=== PATIENT | female | born 1960 | race Caucasian/White ===

== ENCOUNTER 2022-08-11 09:19 | Emergency (ER) | payer BC, SELFPAY ==
[2022-08-11 09:28] VITALS: BP 125/106; PULSE 74; RESP 18; TEMP 36.2; O2SAT 95; BMI 38.6
--- NOTE | 2022-08-11 09:47 | ED.CHESTPAIN ---
HPI - Chest Pain General Chief Complaint: Chest Pain Stated Complaint: Chest/shoulder pain Time Seen by Provider: 08/11/22 09:43 History of Present Illness HPI narrative: This 62-year-old female comes in reporting some chest discomfort over the past couple days. She states that it is not exertional. She did not have any nausea, vomiting, lightheadedness, shortness of breath, or diaphoresis. 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 She was at the [facility] regarding this and had an angiogram. She is taking metoprolol. She did take a baby aspirin the last couple days. She does not report any exercise intolerance recently. Related Data Home Medications Medication Instructions Recorded Confirmed aspirin 81 mg chewable tablet 81 mg PO DAILY 08/11/22 08/11/22 lisinopril 20 mg tablet mg 08/11/22 metoprolol tartrate 25 mg tablet mg 08/11/22 omeprazole 20 mg capsule,delayed 20 mg PO DAILY 08/11/22 08/11/22 release Allergies Allergy/AdvReac Type Severity Reaction Status Date / Time No Known Drug Allergies Allergy Verified 08/11/22 09:27 Review of Systems Status of ROS Reports: 10 or more systems reviewed and unremarkable except as noted in History and below Narrative Constitutional: No fevers, no weight gain or loss. Eyes: No discharge. No vision changes. HENT: No congestion, no sore throat, no ear pain. Cardiovascular: No palpitations. Chest discomfort as described above. Respiratory: No shortness of breath, no wheezes, no cough. Gastrointestinal: No abdominal pain, no vomiting, no diarrhea. Genitourinary: No dysuria, no hematuria. Musculoskeletal: Normal range of motion. Skin: No rashes, no pruritis. Neurological: No dizziness, weakness, sensory change, speech change. Endo/Heme/Allergies: No bruising or bleeding. No polydipsia. Pysch: no suicidality, no anxiety, no insomnia. All other systems reviewed and are negative. Exam Narrative Exam Narrative: Constitutional: Well-developed, well-nourished, no acute distress. HEENT: Normocephalic, atraumatic. Neck: Normal range of motion. Nontender. Supple. Heart: Regular. No murmurs. Normal rate. Intact distal pulses. Lungs: Clear to auscultation. No reproducible chest discomfort. No wheezes, rhonchi, or rales. Abdomen: Normal bowel sounds. Nontender. No rebound tenderness. Genitalia: Deferred. Back: No midline tenderness. Normal range of motion. Extremities: Normal range of motion. No injury. No pedal edema. Skin: Intact. No rash. Warm. No erythema or pallor. Neurologic: No altered sensation. No weakness. Alert and oriented. Psychiatric: No suicidality. No anxiety or depression. No insomnia. Nursing notes and vitals signs are reviewed. Const Vital Signs, click to edit/add: Vital Signs - 24 hr 08/11/22 09:28 Temperature 97.1 F L Pulse Rate [Right Pulse Oximeter] 74 Respiratory Rate 18 Blood Pressure [Right Upper Arm] 125/106 H Pulse Oximetry 95 Oxygen Delivery Method Room Air Course Vital Signs Vital signs: Initial Vital Signs Temperature 97.1 F L 08/11/22 09:28 Temperature Source Temporal Artery Scan 08/11/22 09:28 Pulse Rate 74 08/11/22 09:28 Respiratory Rate 18 08/11/22 09:28 Blood Pressure 125/106 H 08/11/22 09:28 Blood Pressure Mean 112 08/11/22 09:28 Blood Pressure Position Sitting 08/11/22 09:28 Pulse Oximetry 95 08/11/22 09:28 Oxygen Delivery Method 08/11/22 09:28 Vital Signs Temperature 97.1 F L 08/11/22 09:28 Pulse Rate 74 08/11/22 09:28 Respiratory Rate 18 08/11/22 09:28 Blood Pressure 125/106 H 08/11/22 09:28 Pulse Oximetry 95 08/11/22 09:28 Oxygen Delivery Method 08/11/22 09:28 Temperature 97.1 F L 08/11/22 09:28 Pulse Rate 74 08/11/22 09:28 Respiratory Rate 18 08/11/22 09:28 Blood Pressure 125/106 H 08/11/22 09:28 Pulse Oximetry 95 08/11/22 09:28 Oxygen Delivery Method 08/11/22 09:28 MDM - Chest Pain MDM Narrative Medical decision making narrative: This patient comes in reporting some mild chest discomfort but is concerned because of her prior history of spontaneous coronary artery dissection that occurred about 6 years ago. She is taking metoprolol. She did receive 4 baby aspirin here. EKG shows no acute findings. An IV was established and labs returned also with normal results. In particular her troponin is in normal range. If she had a recurrent dissection this would cause a positive troponin results. This was very reassuring to the patient. She is okay to be discharged home to continue current plans. Most likely her chest discomfort is involving the chest wall. Lab Data Labs: Lab Results 08/11/22 08/11/22 08/11/22 Range/Units 09:40 09:40 09:44 WBC 4.54 (4.50-11.00) K/uL RBC 5.02 (4.00-5.20) m/uL Hgb 14.8 (12.0-16.0) gm/dL Hct 44.8 (33.0-51.0) % MCV 89 (80-100) fL MCH 30 (26-34) pg MCHC 33 (32-36) gm/dL RDW Coeff of [place] 12.7 (11.5-15.5) % Plt Count 228 (140-440) K/uL Neut % (Auto) 65.3 (42.0-72.0) % Lymph % (Auto) 25.8 (20-44) % [place] % (Auto) 7.0 (0.0-11.0) % Eos % (Auto) 1.3 (0.0-7.0) % Baso % (Auto) 0.4 (0.0-3.0) % Neut # (Auto) 2.96 (1.7-7.0) K/uL Lymph # (Auto) 1.17 (0.90-2.90) K/uL [place] # (Auto) 0.30 (0.00-0.90) K/UL Eos # (Auto) 0.06 (0.00-0.50) K/uL Baso # (Auto) 0.02 (0.00-0.30) K/uL Sodium 140 (135-149) mmol/L Potassium 4.0 (3.6-5.1) mmol/L Chloride 110 (96-114) mmol/L Carbon Dioxide 23 (20-32) mmol/L BUN 10 (7-30) mg/dL Creatinine 0.8 (0.5-1.5) mg/dL Estimated Creat Clear 64.58 Estimated GFR 84 ml/min Glucose 113 (60-115) mg/dL Calcium 9.3 (8.4-10.6) mg/dL POC Troponin I 0.03 (0.01-0.04) ng/ml ECG Data Attestation: I personally reviewed and interpreted this ECG as follows: Interpretation: Normal sinus rhythm. Rate is 83 beats per minute. There are no ST or T-wave abnormalities. Discharge Plan Discharge Clinical Impression: Atypical chest pain Patient Disposition: Home, Self-Care Condition: Stable Additional Instructions: Continue current plans. Follow up with primary MD or return if recurrent or worsening symptoms happen. Prescriptions: No Action lisinopril 20 mg tablet metoprolol tartrate 25 mg tablet aspirin 81 mg tablet,chewable 81 mg PO DAILY omeprazole 20 mg capsule,delayed release(DR/EC) 20 mg PO DAILY Follow Up/Referrals: Provider,Not a Local [Primary Care Provider] - Stand Alone Forms: [employer] Info Instructions
[2022-08-11 09:54] LABS: Troponin, Point-of-Care* 0.03 ng/ml (0.01-0.04)
[2022-08-11 09:55] LABS: Basophils Absolute Auto 0.02 K/uL (0.00-0.30); Basophils Percent Auto 0.4 % (0.0-3.0); Eosinophils Absolute Auto 0.06 K/uL (0.00-0.50); Eosinophils Percent Auto 1.3 % (0.0-7.0); Hematocrit 44.8 % (33.0-51.0); Hemoglobin* 14.8 gm/dL (12.0-16.0); Immature Granulocytes Abs Auto 0.01 K/uL (0.00-0.30); Immature Granulocytes Pct Auto 0.2 %; Lymphocytes Absolute Auto 1.17 K/uL (0.90-2.90); Lymphocytes Percent Auto 25.8 % (20-44); Mean Corpuscular HGB Conc 33 gm/dL (32-36); Mean Corpuscular Hemoglobin 30 pg (26-34); Mean Corpuscular Volume 89 fL (80-100); Neutrophils Absolute Auto 2.96 K/uL (1.7-7.0); Neutrophils Percent Auto 65.3 % (42.0-72.0); Platelet Count* 228 K/uL (140-440); RDW Coefficient of Variation % 12.7 % (11.5-15.5); Red Blood Count 5.02 m/uL (4.00-5.20); White Blood Count* 4.54 K/uL (4.50-11.00)
[2022-08-11 09:57] LABS: Slide Review Reflex No
[2022-08-11 10:13] LABS: Chloride* 110 mmol/L (96-114); Sodium* 140 mmol/L (135-149)
[2022-08-11 10:16] LABS: Blood Urea Nitrogen* 10 mg/dL (7-30); Carbon Dioxide* 23 mmol/L (20-32); Creatinine* 0.8 mg/dL (0.5-1.5); Est. Creatinine Clearance* 64.58; Estimated Glomerular Filt Rate 84 ml/min; Glucose* 113 mg/dL (60-115)
[2022-08-11 10:17] LABS: Calcium* 9.3 mg/dL (8.4-10.6)
== END 2022-08-11 11:22 | disposition home or self-care (01) ==
PROVIDERS: Emergency Provider Emergency Medicine Emergency Medical Services
DX: R07.9 Chest pain, unspecified (principal)
CPT/HCPCS: 36415; 80048; 84484; 85025; 93005; 99284

== ENCOUNTER 2024-08-20 19:31 | Emergency (ER) | payer BC, SELFPAY ==
[2024-08-20] VITALS (41 sets, daily range): BP systolic 133–167; BP diastolic 88–104; PULSE 52–75; RESP 12–29; TEMP 36.6; O2SAT 93–99; BMI 38.3
--- OUTSIDE RECORDS SUMMARY | 2024-08-20 19:33 | XMS_ITS | Encounter Summary ---
Author Organization [facility] Address [address] [place] [id number] Care Team Providers Care Cell Support Operator Name Role Phone Jayashree Martinez MD Primary Care Provider Jayashree Hadley MD Unavailable Unavailable Clinic - [facility] Unavailable Reason for Visit * Reason Comments Medication Refill Encounter Details Date Type Department Care Team (Late st Contact Info) Description 11/29/2022 [address] [place] [id number] Jayashree Martinez MD INACTIVE IN [place] 05/26/2024 Medication Refill Social History Tobacco Use Types Packs/Day Years Used Date Smoking Tobacco: Former Cigarettes Q uit: 06/27/2017 Smokeless Tobacco: Never Comments:socially Alcohol Use Standard Drinks/Week Comments Yes 0 (1 standard drink = 0.6 oz pur e alcohol) socially PHQ-2 Answer Date Recorded PHQ-2 Score 0 10/22/2022 Comments No Sex and Gender Information Value Date Recorded Sex Assigned at Not on file 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 Gender Identity Not on file Sexual Orientation Not on file documented as of this encounter Miscellaneous Notes * Telephone Encounter - Jazmine Rebolledo RN - 12/01/2022 12:50 PM CDT Provider approval needed Creatinine Date Value Ref Range Status 10/22/2022 0.99 (H) 0.51 - 0.95 mg/dL Final 05/01/2020 0.91 0.52 - 1.04 mg/dL Final documented in this encounter Plan of Treatment Not on file documented as of this encounter Visit Diagnoses Diagnosis Benign essential hypertension Essential hypertension, benign documented in this encounter Additional Health Concerns Assessment Noted Time PHQ-9 Depression Total Score: 2 03/01/20 19 11:06 AM CDT documented as of this encounter Care Teams Cell Support Operator Relationship Specialty Start Date End Date Jayashree Martinez MD PCP - General Internal Medicine 03/01/19 Jayashree Martinez MD Assigned PCP 02/08/19 07/20/23 [facility] [place] [facility] - [address] [address] Assigned PCP 07/21/23 documented as of this encounter
--- OUTSIDE RECORDS SUMMARY | 2024-08-20 19:33 | XMS_ITS | Clinical Summary ---
Author Organization [facility] Address [address] [place] [address] Care Team Providers Care Drying Machine Receiver Name Role Phone None, Pcp Primary Care Provider Unavailabl e Allergies Active Allergy Reactions Criticality Noted Date Comments Bee Venom 01/12/2006 Medications Vitamin D, Cholecalciferol, 25 MCG (1000 UT) tablet Take by mouth Active omeprazole (PriLOSEC) [address] Aden ns:Gastroesophag eal reflux disease with esophagitis without hemorrhage Take 1 capsule (20 mg total) by mouth 1 (one) time each day Do not crush or chew. 90 capsule 3 11/11/2023 11/11/19 25 Active metoprolol succinate XL (TOPROL-XL) 50 MG 24 hr tabletIndication s:Hypertension, unspecified type Take 1 tablet (50 mg total) by mouth 1 (one) time each day 90 tablet 3 11/11/2023 11/11/19 25 Active lisinopril (ZESTRIL) 20 MG tabletIndication s:Hypertension, unspecified type Take 1 tablet (20 mg total) by mouth 1 (one) time each day 90 tablet 3 11/11/2023 11/11/19 25 Active Active Problems Problem Noted Date Diagnosed Date Hypertension 11/11/2023 Assessment & Plan (11/11/2023 12:46 PM CDT): Hypertension is improving with treatment. Continue current treatment regimen. Dietary sodium restriction. Weight loss. Regular aerobic exercise. Blood pressure will be reassessed at the next regular appointment. 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 Assessment & Plan (11/11/2023 12:48 PM CDT): Last seen in 2018 for this, no issues since Encounter for breast cancer screening other than mammogram 11/11/2023 Encounter for Papanicolaou s mear for cervical cancer screening 11/11/2023 Assessment & Plan (11/11/2023 12:49 PM CDT): Pap and HPV test completed today Post-menopause 11/11/2023 Visit for annual health examination 11/11/2023 Assessment & Plan (11/11/2023 12:52 PM CDT): Dianne will think about getting the Zoster vaccine and get back to us Dianne would like to have Covid vaccines discontinued Dianne will contact me when she would like a Colonoscopy ordered Family History Medical History Relation Comments Diabetes Mother Heart disease Mother aortic valve Breast cancer Sister Relation Status Comments Brother 1 Alive Brother 2 Alive Brother 3 Alive Brother 4 Alive Brother 5 Alive Father Mother Sister Alive Social History Tobacco Use Types Packs/Day Years Used Date Smoking Tobacco: Former Cigarettes Q uit: 2018 Smokeless Tobacco: Never Tobacco Cessation:Counseling Given: Not Answered Alcohol Use Standard Drinks/Week Comments Yes 0 (1 standard drink = 0.6 oz pur e alcohol) Social Connection and Isolation Panel [NHANES] A nswer Date Recorded In a typical week, how many times do you talk on the phone with family, friends, or neighbors? Three times a week 11/10/2023 How often do you get togethe r with friends or relatives? Once a week 11/10/2023 How often do you attend [facility] or gnosticist services? Patient declined 11/10/2023 Do you belong to any clubs o r organizations such as sabianism groups, unions, fraternal or athletic groups, or school groups? Patient declined 11/10/2023 How often do you attend meet ings of the clubs or organizations you belong to? Patient declined 11/10/2023 Are you , , di vorced, , never , or living with a partner? 11/10/2023 AUDIT-C Answer Date Recorded Q1: How often do you have a drink containing alc ohol? Monthly or less 11/10/2023 Q2: How many drinks containi ng alcohol do you have on a typical day when you are drinking? Patient declined 11/10/2023 Q3: How often do you have si x or more drinks on one occasion? Patient declined 11/10/2023 Overall Financial Resource Strain (CARDIA) Answe r Date Recorded How hard is it for you to pa y for the very basics like food, housing, medical care, and heating? Patient declined 11/10/2023 PHQ-2 Answer Date Recorded PHQ-9 Total Score 0 11/10/2023 [facility] - Occupational Stress Questionnaire Answer Date Recorded Do you feel stress - tense, restless, nervous, or anxious, or unable to sleep at night because your mind is troubled all the time - these days? Only a little 11/10/2023 Exercise Vital Sign Answer Date Recorde d On average, how many days pe r week do you engage in moderate to strenuous exercise (like a brisk walk)? 2 days 11/10/2023 On average, how many minutes do you engage in exercise at this level? 20 min 11/10/2023 Hunger Vital Sign Answer Date Recorded Within the past 12 months, y ou worried that your food would run out before you got the money to buy more. Patient declined Within the past 12 months, t he food you bought just didn't last and you didn't have money to get more. Patient declined PRAPARE - Transportation Answer Date Re corded In the past 12 months, has l ack of transportation kept you from medical appointments or from getting medications? No 10/25 In the past 12 months, has l ack of transportation kept you from meetings, work, or from getting things needed for daily living? No 11/10/2023 Housing Stability Vital Sign Answer Robel e Recorded In the last 12 months, was t here a time when you were not able to pay the mortgage or rent on time? Patient declined 11/10/19 24 Number of Times Moved in the Last Year Not on fi le 11/10/2023 At any time in the [facility], were you homeless or living in a long term (including now)? No 11/10/2023 Comments Unknown Sex and Gender Information Value Date Recorded Sex Assigned at Not on file Legal Sex Female 7:52 PM CDT Gender Identity Not on file Sexual Orientation Not on file Last Filed Vital Signs Vital Sign Reading Time Taken Comments Blood Pressure 136/88 11/11/2023 10:29 AM CDT Pulse 74 11/11/2023 9:12 AM CDT Temperature 36.7 C (98.1 F) 11/11/2023 9:12 AM CDT Respiratory Rate 16 11/11/2023 9:12 AM CDT Oxygen Saturation 95% 11/11/2023 9:12 AM CDT Inhaled Oxygen Concentration - - Weight 97.6 kg (215 lb 3.2 oz) 12/14/2023 8:16 A M CDT Height 162 cm (5' 3.78) 11/11/2023 9:12 AM CDT Body Mass Index 37.19 11/11/2023 9:12 AM CDT Plan of Treatment Health Maintenance Due Date Last Done Comments CT Colonography 1960 FIT-DNA 1960 Sigmoidoscopy 1960 iFOBT 1960 Pneumococcal Vaccine: 50+ Years (1 of 1 - PCV) 2012 Zoster Vaccines (1 of 2) 2012 Colonoscopy 11/22/2017 11/22/2014 Colorectal Cancer Screening 11/22/2017 Influenza Vaccine (#1) 2024 03/01/2019 Mammogram 03/01/2024 03/01/2023, 03/01/2023 Pap Smear 11/10/2026 11/11/2023, 11/05/2014 DTaP,Tdap,and Td Vaccines (3 - Td or Tdap) 10/22/2032 10/22/2022, 03/07/2012 COVID-19 Vaccine Discontinued HPV Vaccines Aged Out No longer eligi ble based on patient's age to complete this topic Pneumococcal Vaccine: Pediatrics (0 to 5 Years) and At-Risk Patients (6 to 49 Years) Aged Out No longer eligible based on patient's age to complete this topic Procedures Procedure Name Priority Date/Time Associated Diagnosis Comments PAP TEST Routine 11/11/2023 10:08 AM CDT Encounter for Papanicolaou smear for cervical cancer screening HM COLONOSCOPY Routine 11/22/2014 from Last 3 Months or Most Recently Relevant to Health Maintenance Results * Pap Smear (11/11/2023 10:08 AM CDT) Sure Path PAP, screen 11/11/2023 10:08 AM CDT 11/14/2023 9:13 AM CDT [facility] - 11/15/2023 3:42 PM CDT [address] [address] Patient: DIANNE RAO Procedure: 11/11/2023 10:08 /Age/Sex: 1960, 63 Y, F Received: 11/14/2023 09:13 [place] Patient Location: [facility] Ordered by: CAPRICE STINSON APRN Attending: CAPRICE STINSON APRN THERMAL CUTTING TRACER MACHINE OPERATOR CYTOLOGY FINAL REPORT SPECIMEN: (A) SURE PATH PAP, SCREEN SPECIMEN DESCRIPTION: Cervical Received cloudy specimen in SurePath vial. CLINICAL INFORMATION: Menopause: Y Prev.normal: 2022 SPECIMEN ADEQUACY: Satisfactory for Evaluation. Endocervical cells/transformation zone component present. GENERAL CATEGORIZATION: Negative for Intraepithelial Lesion or Malignancy (NILM). PAP Test Disclaimer Cervical cytology is a screening test primarily for squamous cancer and its precursors and has associated false-negative and false-positive results. Regular sampling and follow-up of unexplained clinical signs and symptoms are recommended to minimize the impact of false negative and false positive results. Screened By: Signed By: VAHE MARAVILLA(ASCP) <Sign Out Signature> Reported: 11/15/2023 Page 1 of 1 us Caprice Stinson APRN LAB CYTOLOGY ORDERABLE S Final Result [facility] [address] [place] [address] * Colonoscopy (11/22/2014) Colonoscopy 3 yrs recheck [facility] Historical Provider MD HEALTH MAINTENANCE Final Result from Last 3 Months or Most Recently Relevant to Health Maintenance Insurance Care Teams Drying Machine Receiver Relationship Specialty Start Date End Date None, Pcp [address] [place] [address] PCP - General 04/14/23
--- OUTSIDE RECORDS SUMMARY | 2024-08-20 19:33 | XMS_ITS | Clinical Summary ---
Author Organization [place] Address [address] [place] [address] Care Team Providers Care Natural Science Manager Name Role Phone Jayashree Martinez MD Primary Care Provider Jeferson santoyo [facility] Allergies Active Allergy Reactions Criticality Noted Date Comments Bee 01/12/2006 No Known Drug Allergy 06/04/2004 Medications PRILOSEC OTC OR 1 TABLET DAILY Active vitamin D3 (CHOLECALCIFEROL) 2000 units (50 mcg) tablet Take 1 tablet by mouth daily Active lisinopril (ZESTRIL) 20 MG tabletIndications :Benign essential hypertension TAKE 1 TABLET(20 MG) BY MOUTH DAILY 90 tablet 08/15/2023 Active metoprolol succinate ER (TOPROL XL) 50 MG 24 hr tabletIndications :Benign essential hypertension TAKE 1 TABLET(50 MG) BY MOUTH DAILY 90 tablet 08/15/2023 Active Active Problems Problem Noted Date Diagnosed Date Benign essential hypertension 09/18/2021 CARDIOVASCULAR SCREENING; LDL GOAL LESS THAN 130 03/08/2019 Fibromuscular dysplasia 03/08/2019 Renal artery aneurysm 03/08/2019 Premature menopause 03/08/2019 Morbid obesity 03/08/2019 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 Provider to review Immunizations Name Administration Dates Next Due Influenza Vaccine 18-64 (Flublok) 05/01/2020 05/01/2021 Influenza Vaccine >6 months,quad, PF 03/01/2019 TD,PF 7+ (Tenivac) 10/22/2022 TDAP Vaccine (Adacel) 03/07/2012 Family History Medical History Relation Comments Prostate Cancer Father C.A.D. Maternal Grandfather 50's Cancer Maternal Grandmother cervical Hypertension Mother Relation Status Comments Father Maternal Grandfather Maternal Grandmother Mother Social History Tobacco Use Types Packs/Day Years Used Date Smoking Tobacco: Former Cigarettes Q uit: 06/27/2017 Smokeless Tobacco: Never Tobacco Cessation:Counseling Given: Not Answered Comments:socially Alcohol Use Standard Drinks/Week Comments Yes 0 (1 standard drink = 0.6 oz pur e alcohol) socially PHQ-2 Answer Date Recorded PHQ-2 Score 0 10/22/2022 Adolescent Education Answer Date Record ed Getting School Help Needed Not on file 04/05 Comments No Sex and Gender Information Value Date Recorded Sex Assigned at Not on file 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 Gender Identity Not on file Sexual Orientation Not on file Last Filed Vital Signs Vital Sign Reading Time Taken Comments Blood Pressure 125/83 10/22/2022 8:15 AM CDT Pulse 86 10/22/2022 8:15 AM CDT Temperature 36.7 C (98 F) 10/22/2022 8:15 AM CDT Respiratory Rate 16 10/22/2022 8:15 AM CDT Oxygen Saturation 98% 10/22/2022 8:15 AM CDT Inhaled Oxygen Concentration - - Weight 109.3 kg (241 lb) 10/22/2022 8:15 AM CDT Height 161.3 cm (5' 3.5) 10/22/2022 8:15 AM CDT Body Mass Index 42.02 10/22/2022 8:15 AM CDT Plan of Treatment Health Maintenance Due Date Last Done Comments CT COLONOGRAPHY 1962 FIT 1962 FLEX SIG 1962 sDNA (Cologuard) 1962 Pneumococcal Vaccine: 50+ Years (1 of 1 - PCV) 2012 ZOSTER IMMUNIZATION (1 of 2) 2012 RSV VACCINE (1 - Risk 60-74 years 1-dose series) 2022 COLONOSCOPY 07/11/2022 07/11/2012 COLORECTAL CANCER SCREENING 07/11/2022 ANNUAL REVIEW OF HM ORDERS 10/23/2023 10/22/2022 BMP 10/23/2023 10/22/2022, 11/25, 05/01/2020, Additional history exists YEARLY PREVENTIVE VISIT 10/23/2023 10/23/19 23, 05/01/2020, 03/01/2019, Additional history exists COVID-19 Vaccine ( season) 2024 INFLUENZA VACCINE (#1) 2024 05/01/2020, 2018 HPV TEST 03/01/2024 03/01/2019 PAP 03/01/2024 03/01/2019, 10/2018, 06/04/2004, Additional history exists PHQ-2 (once per calendar year) 2024 10/22/2022, 03/01/2019, 03/01/2019 MAMMO SCREENING 03/01/2025 03/01/2023, 10/25, 01/07/2005 ADVANCE CARE PLANNING 05/05/2025 05/05/2020 GLUCOSE 10/22/2025 10/22/2022, 11/25, 05/01/2020, Additional history exists LIPID 10/23/2027 10/22/2022, 11/25, 05/01/2020, Additional history exists DTAP/TDAP/TD IMMUNIZATION (3 - Td or Tdap) 10/22/2032 10/22/2022, 03/07/2012 LUNG CANCER SCREENING Discontinued 12/20/2004 HEPATITIS C SCREENING Completed 02/25/2019 HIV SCREENING Completed 02/25/2019 HPV IMMUNIZATION Aged Out No longer e ligible based on patient's age to complete this topic MENINGITIS IMMUNIZATION Aged Out No l onger eligible based on patient's age to complete this topic RSV MONOCLONAL ANTIBODY Aged Out No l onger eligible based on patient's age to complete this topic Procedures Procedure Name Priority Date/Time Associated Diagnosis Comments MA SCREENING BILATERAL W/ HOOD Routine 03/01/2023 8:15 AM CDT Encounter for screening mammogram for breast cancer LIPID REFLEX TO DIRECT LDL PANEL Routine 10/22/2022 9:15 AM CDT CARDIOVASCULAR SCREENING; LDL GOAL LESS THAN 130 BASIC METABOLIC PANEL Routine 10/22/2022 9:15 AM CDT Benign essential hypertension PAP IMAGED THIN LAYER SCREEN Routine 03/01/2019 11:33 AM CDT Screening for malignant neoplasm of cervix HPV HIGH RISK TYPES DNA CERVICAL Routine 03/01/2019 11:30 AM CDT Screening for malignant neoplasm of cervix COLONOSCOPY - HIM SCAN Routine 07/11/[address] THORAX W/O CONT Routine 12/20/2004 6:18 PM CDT from Last 3 Months or Most Recently Relevant to Health Maintenance Results * MA Screen Bilateral w/Hood (03/01/2023 8:15 AM CDT) Anatomical Region Laterality Modality Breast Bilateral Mammography Impressions 03/02/2023 11:12 AM CDT IMPRESSION: ACR BI-RADS Category 1: Negative RECOMMENDED FOLLOW-UP: Annual routine screening mammogram The results and recommendations of this examination will be communicated to the patient. Rizwan Krueger MD Narrative 03/02/2023 11:12 AM CDT BILATERAL FULL FIELD DIGITAL SCREENING MAMMOGRAM WITH TOMOSYNTHESIS Performed on: 03/01/23 Compared to: 11/08/2014 Technique: This study was evaluated with the assistance of Computer-Aided Detection. Breast Tomosynthesis was used in interpretation. Findings: The breasts have scattered areas of fibroglandular density. There is no radiographic evidence of malignancy. us Jayashree Martinez MD IMG MAMMOGRAPHY ORDERABLES Final Result * (ABNORMAL) Lipid panel reflex to direct LDL Fasting (10/22/2022 9:15 AM CDT) Cholesterol 201(H) <200 mg/dL 10/22/2022 10:01 PM CDT [facility] Triglycerides 129 <150 mg/dL 10/22/2022 10:01 PM CDT [facility] Direct Measure HDL 50 >=50 mg/dL 10/22/2022 10:01 PM CDT [facility] LDL Cholesterol Calculated 125(H) <=100 mg/dL 10/22/2022 10:01 PM CDT [facility] Non HDL Cholesterol 151(H) <130 mg/dL 10/22/2022 10:01 PM CDT [facility] Blood BLOOD SPECIMEN / Unknown Venipuncture / Unknown 10/22/2022 9:15 AM CDT 10/22/2022 9:15 AM CDT Narrative [facility] - 10/22/2022 10:01 PM CDT Cholesterol Desirable: <200 mg/dL Triglycerides Normal: Less than 150 mg/dL Borderline High: 150-199 mg/dL High: 200-499 mg/dL Very High: Greater than or equal to 500 mg/dL Direct Measure HDL Female: Greater than or equal to 50 mg/dL Male: Greater than or equal to 40 mg/dL LDL Cholesterol Desirable: <100mg/dL Above Desirable: 100-129 mg/dL Borderline High: 130-159 mg/dL High: 160-189 mg/dL Very High: >= 190 mg/dL Non HDL Cholesterol Desirable: 130 mg/dL Above Desirable: 130-159 mg/dL Borderline High: 160-189 mg/dL High: 190-219 mg/dL Very High: Greater than or equal to 220 mg/dL us Jayashree Martinez MD LAB - BLOOD ORDERABLES Final Res ult [facility] [address], [address] [place] [address], [facility] [phone] * (ABNORMAL) Basic metabolic panel (Ca, Cl, CO2, Creat, Gluc, K, Na, BUN) (10/22/2022 9:15 AM CDT) Sodium 140 136 - 145 mmol/L 10/23/2022 12:50 AM CDT [facility] Potassium 4.9 3.4 - 5.3 mmol/L 10/23/2022 12:50 AM CDT [facility] Chloride 104 98 - 107 mmol/L 10/23/2022 12:50 AM CDT [facility] Carbon Dioxide (CO2) 24 22 - 29 mmol/L 10/23/2022 12:50 AM CDT [facility] Anion Gap 12 7 - 15 mmol/L 10/23/2022 12:50 AM CDT [facility] Urea Nitrogen 12.1 8.0 - 23.0 mg/dL 10/23/2022 12:50 AM CDT [facility] Creatinine 0.99(H) 0.51 - 0.95 mg/dL 10/23/2022 12:50 AM CDT [facility] Calcium 9.8 8.8 - 10.2 mg/dL 10/23/2022 12:50 AM CDT [facility] Glucose 92 70 - 99 mg/dL 10/23/2022 12:50 AM CDT [facility] GFR Estimate 65 >60 mL/min/1.7 3m2 10/23/2022 12:50 AM CDT [facility] Comment:eGFR calculated beatriz scott 2020 CKD-EPI equation. Blood BLOOD SPECIMEN / Unknown Venipuncture / Unknown 10/22/2022 9:15 AM CDT 10/22/2022 9:15 AM CDT us Jayashree Martinez MD LAB - BLOOD ORDERABLES Final Res ult [facility] [address], [address] [phone], [facility] [phone] * HPV High Risk Types DNA Cervical (03/01/2019 11:30 AM CDT) HPV Source [facility] 03/01/2019 11:33 AM CDT [facility] HPV 16 DNA Negative NEG^Nega tive 03/07/2019 3:11 PM CDT [facility] HPV 18 DNA Negative NEG^Nega tive 03/07/2019 3:11 PM CDT [facility] Other HR HPV Negative NEG^Nega tive 03/07/2019 3:11 PM CDT [facility] Final Diagnosis This patient's sample is negative for HPV DNA. 03/07/2019 3:11 PM CDT [facility] Comment: This test was developed and its performance characteristics determined by the [facility], Molecular Diagnostics Laboratory. It has not been cleared or approved by the FDA. The laboratory is regulated under CLIA as qualified to perform high-complexity testing. This test is used for clinical purposes. It should not be regarded as investigational or for research. (Note) METHODOLOGY: The Mia sofiya 4800 system uses automated extraction, simultaneous amplification of HPV (L1 region) and beta-globin, followed by real time detection of fluorescent labeled HPV and beta globin using specific oligonucleotide probes . The test specifically identifies types HPV 16 DNA and HPV 18 DNA while concurrently detecting the rest of the high risk types (31, 33, 35, 39, 45, 51, 52, 56, 58, 59, 66 or 68). COMMENTS: This test is not intended for use as a screening device for women under age 30 with normal cervical cytology. Results should be correlated with cytologic and histologic findings. Close clinical followup is recommended. Specimen Description Cervical Cells 03/01/2019 11:33 AM CDT [facility] Comment:[id number] Cervical Cells CERVIX UTERI STRUCTURE / Unknown 03/01/2019 11:30 AM CDT 03/01/2019 12:54 PM CDT us Jayashree Martinez MD LAB - BLOOD ORDERABLES Final Res ult [address] [address] [facility] [address] [place] [address] * Colonoscopy - HIM Scan (07/11/2012) Narrative Sammie Mccarty - 07/11/2012 Tests that can be patient reported without a hard copy: Colonoscopy done on this date: 07/11/2012 (approximately), by this group: Malika, results were normal. us Patient Reported PROCEDURES Final Result * CT SCAN CHEST (12/20/2004 6:18 PM CDT) Anatomical Region Laterality Modality Other 12/20/2004 6:18 PM CDT Impressions 12/21/2004 11:[address] CHEST WITH CONTRAST - 12/20/2004 CLINICAL HISTORY: Chest pain. Evaluate for dissection. TECHNIQUE: With intravenous contrast through the chest. FINDINGS: The aorta is normal. No evidence for aneurysm or dissection. No pulmonary embolus. Mediastinal and hilar structures are within normal limits. The lungs are clear. Visualized portions of the upper abdominal organs are within normal limits. IMPRESSION: 1. Negative exam. 2. This agrees with the preliminary report by Dr. Dank Perera. [facility] Edited from Last 3 Months or Most Recently Relevant to Health Maintenance [place] Care Teams Natural Science Manager Relationship Specialty Start Date End Date Jayashree Martinez MD PCP - General Internal Medicine 03/01/19 [facility] - [address] [address] Assigned PCP 07/21/23
--- OUTSIDE RECORDS SUMMARY | 2024-08-20 19:33 | XMS_ITS | Encounter Summary ---
Author Organization [place] Address [address] [place] [address] Care Team Providers Care Invas Tech Name Role Phone Jayashree Martinez MD Primary Care Provider Jayashree Hadley MD Unavailable Unavailable Clinic - [facility] Unavailable Reason for Visit * Reason Comments Medication Refill Encounter Details Date Type Department Care Team (Late st Contact Info) Description 04/26/[address] [place] [address] [place] [phone] Jayashree Martinez MD INACTIVE IN [place] 05/26/2024 Medication Refill Social History Tobacco Use Types Packs/Day Years Used Date Smoking Tobacco: Former Cigarettes Q uit: 06/27/2017 Smokeless Tobacco: Never Comments:socially Alcohol Use Standard Drinks/Week Comments Yes 0 (1 standard drink = 0.6 oz pur e alcohol) socially PHQ-2 Answer Date Recorded PHQ-2 Score 0 03/01/2019 Comments No Sex and Gender Information Value Date Recorded Sex Assigned at Not on file 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 documented in this encounter Plan of Treatment Not on file documented as of this encounter Visit Diagnoses Diagnosis Benign essential hypertension Essential hypertension, benign documented in this encounter Additional Health Concerns Assessment Noted Time PHQ-9 Depression Total Score: 2 03/01/20 19 11:06 AM CDT documented as of this encounter Care Teams Invas Tech Relationship Specialty Start Date End Date Jayashree Martinez MD PCP - General Internal Medicine 03/01/19 Jayashree Martinez MD Assigned PCP 02/08/19 07/20/23 [facility] - [address] [address] Assigned PCP 07/21/23 documented as of this encounter
--- OUTSIDE RECORDS SUMMARY | 2024-08-20 19:33 | XMS_ITS | Encounter Summary ---
Author Organization [place] Address [address] [place] [address] Care Team Providers Care Stamper Blocker Name Role Phone Jayashree Martinez MD Primary Care Provider Jayashree Hadley MD Unavailable Unavailable Clinic - [facility] Unavailable Reason for Visit * Reason Onset Date Comments Refill Request 04/26/2022 lisinopril (ZEST RIL) 20 MG tablet Encounter Details Date Type Department Care Team (Late st Contact Info) Description 04/26/[address] [place] [address] Jayashree Martinez MD INACTIVE IN [place] 05/26/2024 Refill Request (lisinopril (ZESTRIL) 20 MG tablet) Social History Tobacco Use Types Packs/Day Years [...] on file 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 documented in this encounter Plan of Treatment Not on file documented as of this encounter Visit Diagnoses Diagnosis Benign essential hypertension Essential hypertension, benign documented in this encounter Additional Health Concerns Assessment Noted Time PHQ-9 Depression Total Score: 2 03/01/20 19 11:06 AM CDT documented as of this encounter Care Teams Stamper Blocker Relationship Specialty Start Date End Date Jayashree Martinez MD PCP - General Internal Medicine 03/01/19 Jayashree Martinez MD Assigned PCP 02/08/19 07/20/23 [facility] - [address] [address] Assigned PCP 07/21/23 documented as of this encounter
--- OUTSIDE RECORDS SUMMARY | 2024-08-20 19:33 | XMS_ITS | Encounter Summary ---
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
--- OUTSIDE RECORDS SUMMARY | 2024-08-20 19:33 | XMS_ITS | Encounter Summary ---
Author Organization [place] Address [address] [place] [address] Care Team Providers Care Mainspring Strip Gauger Name Role Phone Jayashree Martinez MD Primary Care Provider UnavailJayashree Stokes MD Unavailable Unavailable Clinic - [facility] Unavailable Reason for Visit * Reason Comments Medication Refill Encounter Details Date Type Department Care Team (Late st Contact Info) Description 08/05/[address] [place] [address] [place] [phone] Jayashree Martinez MD INACTIVE IN [place] 05/26/2024 Medication Refill Social History Tobacco Use [...] on file 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 Gender Identity Not on file Sexual Orientation Not on file documented as of this encounter Miscellaneous Notes * Telephone Encounter - Jazmine Orlando RN - 08/06/2022 1:36 PM CST Medication is being filled for 1 time refill only due to: upcoming appt Next 5 appointments (look out 90 days) Oct 22, 2022 8:30 AM (Arrive by 8:10 AM) Adult Preventative Visit with Jayashree Martinez MD [facility] ) [address] [place] [address] [address] [facility] [phone] F FORESTER documented in this encounter Plan of Treatment Not on file documented as of this encounter Visit Diagnoses Diagnosis Benign essential hypertension Essential hypertension, benign documented in this encounter Additional Health Concerns Assessment Noted Time PHQ-9 Depression Total Score: 2 03/01/20 19 11:06 AM CDT documented as of this encounter Care Teams Mainspring Strip Gauger Relationship Specialty Start Date End Date Jayashree Martinez MD PCP - General Internal Medicine 03/01/19 Jayashree Martinez MD Assigned PCP 02/08/19 07/20/23 [facility] [address] [place] [address] Assigned PCP 07/21/23 documented as of this encounter
--- OUTSIDE RECORDS SUMMARY | 2024-08-20 19:33 | XMS_ITS | Encounter Summary ---
Author Organization [place] Address [address] [place] [address] Care Team Providers Care Car Wash Manager Name Role Phone Jayashree Martinez MD Primary Care Provider [facility] Reason for Visit * Reason Comments Medication Refill Encounter Details Date Type Department Care Team (Late st Contact Info) Description 08/14/[address] [place] [phone] Kyle Duarte MD [address] [place] [address] Medication Refill Social History Tobacco Use Types [...] on file Legal Sex Female 3:27 AM TACTICAL DECEPTION PLANS OFFICER Gender Identity Not on file Sexual Orientation Not on file documented as of this encounter Miscellaneous Notes * Telephone Encounter - Dianne Bravo, RENEE ICT PROGRAMMER - 08/15/2023 3:44 PM TACTICAL DECEPTION PLANS OFFICER I sent refill- just an FYI though, all [facility] can transfer refills to alternative locations if it is not a controlled medication. This did not require a provider to send the refill in ICAL DECEPTION PLANS OFFICER * Telephone Encounter - Jazmine Rebolledo, RN - 08/15/2023 3:18 PM TACTICAL DECEPTION PLANS OFFICER Provider approval needed. Creatinine Date Value Ref Range Status 10/22/2022 0.99 (H) 0.51 - 0.95 mg/dL Final 05/01/2020 0.91 0.52 - 1.04 mg/dL Final ICAL DECEPTION PLANS OFFICER * Telephone Encounter - Lina Vallejo RN - 08/15/2023 9:31 AM TACTICAL DECEPTION PLANS OFFICER Asking for different pharmacy - please advise as it fails protocol Thank you Lina Vallejo RN, [facility] Triage ICAL DECEPTION PLANS OFFICER documented in this encounter Plan of Treatment Not on file documented as of this encounter Visit Diagnoses Diagnosis Benign essential hypertension Essential hypertension, benign documented in this encounter Additional Health Concerns Assessment Noted Time PHQ-9 Depression Total Score: 2 03/01/20 19 11:06 AM CDT documented as of this encounter Care Teams Car Wash Manager Relationship Specialty Start Date End Date Jayashree Martinez MD PCP - General Internal Medicine 03/01/19 Clinic - [address] [address] Assigned PCP 07/21/23 documented as of this encounter
--- NOTE | 2024-08-20 20:13 | CRLHL7_ITS ---
For Patients: As a result of the Century Cures Act, medical imaging exams and procedure reports are released immediately into your electronic medical record. You may view this report before your referring provider. If you have questions, please contact your health care provider. INDICATION: Chest pain. TECHNIQUE: Chest 2 views. COMPARISON: None. FINDINGS: Cardiovascular and mediastinum: Heart size is normal. Unremarkable mediastinum. Lungs and pleural spaces: Lungs are clear. No sign of infiltrate or mass. No sign of pleural effusion. No pneumothorax. Bones and soft tissues: No significant findings. IMPRESSION: Negative chest. Dictated by Geraldo Springer MD @ 08/20/2024 8:54:58 PM (Electronically Signed)
[2024-08-20 20:18] LABS: Troponin, Point-of-Care* 0.01 ng/ml (0.01-0.04)
[2024-08-20 20:22] LABS: Basophils Absolute Auto 0.04 K/uL (0.00-0.30); Basophils Percent Auto 0.5 % (0.0-3.0); Eosinophils Absolute Auto 0.15 K/uL (0.00-0.50); Hematocrit 44.1 % (33.0-51.0); Hemoglobin* 13.9 gm/dL (12.0-16.0); Immature Granulocytes Abs Auto 0.01 K/uL (0.00-0.30); Immature Granulocytes Pct Auto 0.1 %; Lymphocytes Absolute Auto 3.25 K/uL (0.90-2.90); Lymphocytes Percent Auto 43.2 % (20-44); Mean Corpuscular HGB Conc 32 gm/dL (32-36); Mean Corpuscular Hemoglobin 29 pg (26-34); Mean Corpuscular Volume 92 fL (80-100); Neutrophils Absolute Auto 3.32 K/uL (1.7-7.0); Neutrophils Percent Auto 44.2 % (42.0-72.0); Platelet Count* 252 K/uL (140-440); White Blood Count* 7.52 K/uL (4.50-11.00)
--- OUTSIDE RECORDS SUMMARY | 2024-08-20 20:22 | XMS_ITS | Encounter Summary ---
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 Gender Identity Not on file Sexual Orientation Not on file documented as of this encounter Plan of Treatment Not on file documented as of this encounter Visit Diagnoses Not on filedocumented in this encounter Additional Health Concerns Assessment Noted Time PHQ-9 Depression Total Score: 2 03/01/20 19 11:06 AM CDT documented as of this encounter Care Teams Casting And Pasting Supervisor Relationship Specialty Start Date End Date Jayashree Martinez MD PCP - General Internal Medicine 03/01/19 [facility] M [address] [address] Assigned PCP 07/21/23 documented as of this encounter
--- OUTSIDE RECORDS SUMMARY | 2024-08-20 20:22 | XMS_ITS | Clinical Summary ---
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 Gender Identity Not on file Sexual Orientation [...] Final Res ult [facility] [address], [address] [place] [address], [facility] [phone] * (ABNORMAL) Basic metabolic panel (Ca, Cl, [...] Final Res ult [facility] [address], [address] [phone], [facility] [phone] * HPV High Risk Types DNA Cervical (03/01/2019 11:30 AM CDT) HPV Source [facility] 03/01/2019 11:33 AM CDT [facility] HPV 16 DNA Negative NEG^Nega tive 03/07/2019 3:11 PM CDT [facility] HPV 18 DNA Negative NEG^Nega tive 03/07/2019 3:11 PM CDT [facility] Other HR HPV Negative NEG^Nega tive 03/07/2019 3:11 PM CDT [facility] Final Diagnosis This patient's sample is negative for HPV DNA. 03/07/2019 3:11 PM CDT [facility] Comment: This test was developed and its performance characteristics determined by the [facility]. It has not [...] Description Cervical Cells 03/01/2019 11:33 AM CDT [facility] Comment:[id number] Cervical Cells CERVIX UTERI STRUCTURE / Unknown 03/01/2019 11:30 AM CDT 03/01/2019 12:54 PM CDT us Jayashree Martinez MD LAB - BLOOD ORDERABLES Final Res ult [address] [address] [facility] [address] [facility] [address] [place] [address] * Colonoscopy - HIM Scan (07/11/2012) Narrative [...] Relevant to Health Maintenance [place] Sub[place] Plan / Payer (Ef fective 2022-Present) Name:Dianne Rao Relation to Subscriber:Spouse Name:Susan Rao Date of :1964 (Home) (Work) Address: [address] [place], [place] [id number] Payer ID:[id number] (NAIC) Type:Indemnity Address: [facility] [id number] [place] [id number] [place] Care Teams M1A1 Tank Crewman Relationship Specialty Start Date End Date Jayashree Martinez MD PCP - General Internal Medicine 03/01/19 [facility] - [address] [address] Assigned PCP 07/21/23
--- OUTSIDE RECORDS SUMMARY | 2024-08-20 20:22 | XMS_ITS | Encounter Summary ---
Author Organization [place] Address [address] [place] [address] Care Team Providers Care Optical Goods Drill Operator Name Role Phone Jayashree Martinez MD Primary Care Provider Jayashree Hadley MD Unavailable Unavailable Clinic - [facility] Unavailable Reason for Visit * Reason Onset Date Comments Refill Request 04/26/2022 lisinopril (ZEST RIL) 20 MG tablet Encounter Details Date Type Department Care Team (Late st Contact Info) Description 04/26/[address] [place] [address] Jayashree Martinez MD INACTIVE IN [place] 05/26/2024 Refill Request (lisinopril (ZESTRIL) 20 MG [...] on file 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
--- OUTSIDE RECORDS SUMMARY | 2024-08-20 20:22 | XMS_ITS | Encounter Summary ---
Author Organization [place] Address [address] [place] [address] Care Team Providers Care Food Service Team Member Name Role Phone Jayashree Martinez MD Primary Care Provider [facility] Reason for Visit * Reason Comments Medication Refill Encounter Details Date Type Department Care Team (Late st Contact Info) Description 08/14/[address] [place] [phone] Kyle Duarte MD [address] [place] [address] Medication Refill Social History Tobacco [...] on file Legal Sex Female 3:27 AM COFFEE GRINDER Gender Identity Not on file Sexual Orientation Not on file documented as of this encounter Miscellaneous Notes * Telephone Encounter - Dianne Bravo, RENEE FILTER FILLER - 08/15/2023 3:44 PM COFFEE GRINDER I sent refill- just an FYI though, all [facility] can transfer refills to alternative locations if it is not a controlled medication. This did not require a provider to send the refill in EE GRINDER * Telephone Encounter - Jazmine Rebolledo, RN - 08/15/2023 3:18 PM COFFEE GRINDER Provider approval needed. Creatinine Date Value Ref Range Status 10/22/2022 0.99 (H) 0.51 - 0.95 mg/dL Final 05/01/2020 0.91 0.52 - 1.04 mg/dL Final EE GRINDER * Telephone Encounter - Lina Vallejo RN - 08/15/2023 9:31 AM COFFEE GRINDER Asking for different pharmacy - please advise as it fails protocol Thank you Lina Vallejo RN, [facility] [place] Triage EE GRINDER documented in this encounter Plan of Treatment Not on file documented as of this encounter Visit Diagnoses Diagnosis Benign essential hypertension Essential hypertension, benign documented in this encounter Additional Health Concerns Assessment Noted Time PHQ-9 Depression Total Score: 2 03/01/20 19 11:06 AM CDT documented as of this encounter Care Teams Food Service Team Member Relationship Specialty Start Date End Date Jayashree Martinez MD PCP - General Internal Medicine 03/01/19 Clinic - [address] [address] Assigned PCP 07/21/23 documented as of this encounter
--- OUTSIDE RECORDS SUMMARY | 2024-08-20 20:22 | XMS_ITS | Clinical Summary ---
Author Organization [facility] Address [address] [place] [address] Care Team Providers Care Breadman Name Role Phone None, Pcp Primary Care [...] week 11/10/2023 How often do you attend [facility] or muslim services? Patient declined 11/10/2023 Do you belong to any clubs o r organizations such as bahai groups, unions, fraternal or athletic groups, or [...] Date Recorded PHQ-9 Total Score 0 11/10/2023 [facility] - Occupational Stress Questionnaire Answer Date Recorded [...] any time in the past 12 m [facility], were you homeless or living [...] 10:08 AM CDT 11/14/2023 9:13 AM CDT [facility] - 11/15/2023 3:42 PM CDT [address] [address] Patient: DIANNE RAO Procedure: 11/11/2023 10:08 /Age/Sex: 1960, 63 Y, F Received: 11/14/2023 09:13 [place] Patient Location: [facility] OFFICE Ordered by: CAPRICE STINSON APRN Attending: CAPRICE STINSON APRN HABILITATION TRAINING SPECIALIST CYTOLOGY FINAL REPORT SPECIMEN: (A) SURE PATH [...] APRN LAB CYTOLOGY ORDERABLE S Final Result [facility] [address] [place] [address] * Colonoscopy (11/22/2014) Colonoscopy 3 yrs recheck [facility] Historical Provider MD HEALTH MAINTENANCE Final Result from Last 3 Months or Most Recently Relevant to Health Maintenance Insurance Care Teams Breadman Relationship Specialty Start Date End Date None, Pcp [address] [place] [address] PCP - General 04/14/23
--- OUTSIDE RECORDS SUMMARY | 2024-08-20 20:22 | XMS_ITS | Encounter Summary ---
Author Organization [place] Address [address] [place] [address] Care Team Providers Care Filter Tank Tender Helper Head Name Role Phone Jayashree Martinez MD Primary Care Provider Jayashree Hadley MD Unavailable Unavailable Clinic - [facility] Unavailable Reason for Visit * Reason Comments Medication Refill Encounter Details Date Type Department Care Team (Late st Contact Info) Description 04/26/[address] [place] [address] [place] [address] Jayashree Martinez MD INACTIVE IN [place] 05/26/2024 Medication Refill Social History Tobacco Use [...] on file 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
--- OUTSIDE RECORDS SUMMARY | 2024-08-20 20:22 | XMS_ITS | Encounter Summary ---
Author Organization [place] Address [address] [place] [address] Care Team Providers Care Movie Shot Camera Operator Name Role Phone Jayashree Martinez MD Primary Care Provider Jayashree Hadley MD Unavailable Unavailable Clinic - [facility] Unavailable Reason for Visit * Reason Comments Medication Refill Encounter Details Date Type Department Care Team (Late st Contact Info) Description 11/29/2022 [address] [place] [phone] Jayashree Martinez MD INACTIVE IN [place] 05/26/2024 Medication Refill Social History Tobacco Use [...] on file 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
--- OUTSIDE RECORDS SUMMARY | 2024-08-20 20:22 | XMS_ITS | Encounter Summary ---
Author Organization [place] Address [address] [place] [address] Care Team Providers Care Yacht Hand Name Role Phone Jayashree Martinez MD Primary Care Provider UnavailJayashree Stokes MD Unavailable Unavailable Clinic - [facility] Unavailable Reason for Visit * Reason Comments Medication Refill Encounter Details Date Type Department Care Team (Late st Contact Info) Description 08/05/[address] [place] [address] [place] [phone] Jayashree Martinez MD INACTIVE IN [place] 05/26/2024 [...] on file Legal Sex Female 3:27 AM LATHE SANDER Gender Identity Not on file Sexual Orientation [...] Adult Preventative Visit with Jayashree Martinez MD [facility] ) [address] [place] [address] [address] [facility] [phone] E SANDER documented in this encounter Plan of Treatment Not on file documented as of this encounter Visit Diagnoses Diagnosis Benign essential hypertension Essential hypertension, benign documented in this encounter Additional Health Concerns Assessment Noted Time PHQ-9 Depression Total Score: 2 03/01/20 19 11:06 AM CDT documented as of this encounter Care Teams Yacht Hand Relationship Specialty Start Date End Date Jayashree Martinez MD PCP - General Internal Medicine 03/01/19 Jayashree Martinez MD Assigned PCP 02/08/19 07/20/23 [facility] [address] [place] [address] Assigned PCP 07/21/23 documented as of this encounter
[2024-08-20 20:23] LABS: Slide Review Reflex No
[2024-08-20] MEDS: ASPIRIN 81 MG TAB.CHEW 324 MG PO (20:27)
[2024-08-20] MEDS: NITROGLYCERIN 0.4 MG TAB.SUBL SUBLINGUAL ×2 (20:28→21:20)
[2024-08-20 20:42] LABS: D Dimer Quantitative* 0.72 ug/ml (0.00-0.50)
[2024-08-20 20:51] LABS: Albumin* 4.2 g/dL (3.3-5.0); Chloride* 104 mmol/L (96-114); Sodium* 138 mmol/L (135-149)
[2024-08-20 20:52] LABS: Potassium* 3.9 mmol/L (3.6-5.1)
[2024-08-20 20:55] LABS: Alanine Aminotransferase* 14 U/L (4-35); Alkaline Phosphatase* 90 U/L (40-150); Anion Gap 9 mEq/L (7-15); Aspartate Amino Transferase* 24 U/L (12-35); Bilirubin Direct* 0.3 mg/dL (0.0-0.5); Bilirubin Total* 0.4 mg/dL (0.1-1.5); Blood Urea Nitrogen* 14 mg/dL (7-30); Calcium* 8.9 mg/dL (8.4-10.6); Carbon Dioxide* 25 mmol/L (20-32); Creatinine* 0.9 mg/dL (0.5-1.5); Est. Creatinine Clearance* 50.37; Estimated Glomerular Filt Rate 72 ml/min; Glucose* 92 mg/dL (60-115); Lipase* 240 U/L (23-300); Total Protein* 6.7 g/dL (6.0-8.3)
[2024-08-20 20:58] LABS: C Reactive Protein* < 0.5 mg/dL (0.5-1.0)
--- NOTE | 2024-08-20 21:38 | ED_ITS ---
HPI - General Adult General Date Seen: 08/20/24 <Bonny Llanes MD - Last Filed: 08/23/24 08:23> Chief complaint: Chest Pain <Bonny Llanes MD - Last Filed: 08/23/24 08:23> Stated complaint: Chest pain <Bonny Llanes MD - Last Filed: 08/23/24 08:23> Time Seen by Provider: 08/20/24 20:01 <Bonny Llanes MD - Last Filed: 08/23/24 08:23> History of Present Illness HPI narrative: Patient is a 64-year-old woman with a past medical history significant for hypertension and spontaneous coronary artery dissection in 2018 for which she was cared for at [place]. She says that she had had a little bit of back pain a few days ago, thought she slept wrong and as of yesterday it seemed to be fine. Tonight she was combing her cat when she had sudden onset of substernal chest discomfort which she rates as initially fairly significant. It started about an hour prior to her presentation to the ER. It has improved somewhat, has been waxing and waning a little bit, is not gone but currently not as severe. Pain is not pleuritic, she has not had other symptoms such as shortness of breath, nausea, palpitations or fainting. She does feel that pain is exacerbated somewhat by pushing on her chest, and wonders if this might be related to the back pain that she had a few nights ago. She became concerned because it felt similar to her to when she had the coronary artery dissection. She does note she has been seen here once before about a year ago with similar symptoms that she was concerned might represent another dissection, and workup at that time was negative. She does not follow with cardiology any longer. She is not anticoagulated. No recent fever cough. No abdominal pain, denies other medical history. She does not smoke, denies significant alcohol use. Here tonight with her . <Bonny Llanes MD - Last Filed: 08/23/24 08:23> Related Data Home medications: Home Medications ?Medication ?Instructions ?Recorded ?Confirmed lisinopril 20 mg tablet 20 mg PO DAILY 08/11/22 08/20/24 metoprolol tartrate 25 mg tablet 50 mg PO DAILY 08/11/22 08/20/24 omeprazole 20 mg capsule,delayed 20 mg PO DAILY 08/11/22 08/20/24 release <Bonny Llanes MD - Last Filed: 08/23/24 08:23> Allergies/adverse reactions: Allergies Allergy/AdvReac Type Severity Reaction Status Date / Time No Known Drug Allergies Allergy Verified 08/20/24 21:49 <Bonny Llanes MD - Last Filed: 08/23/24 08:23> Review of Systems Status of ROS: Reports: 10 or more systems reviewed and unremarkable except as noted in History and below <Bonny Llanes MD - Last Filed: 08/23/24 08:23> [facility] Social History: Social History Smoking Status: Never smoker Do you use any of these nicotine containing products: None How often do you have a drink containing alcohol: never AUDIT-C Alcohol total score: 0 Non-prescribed substance use: denies use <Bonny Llanes MD - Last Filed: 08/23/24 08:23> Exam Narrative: Exam Narrative: Vital signs reviewed In general, alert, nontoxic manage woman. She looks comfortable, breathing easily. Head: Normocephalic, atraumatic. Eyes: Sclera clear. Pupils equal and reactive. ENT: Mucous membranes moist. Neck: Supple without adenopathy. Heart: Regular rate and rhythm without murmur. She has some reproducible chest wall tenderness. Lungs: Clear. No increased work of breathing, crackles or wheezes. Abdomen: Soft, nontender to palpation. Extremities: Well perfused, pulses intact. No significant edema. Neurologic: Alert, conversant. Speech fluent, face symmetric. Moves all extremities equally. Skin: Warm, dry well perfused. Affect: Normal. <Bonny Llanes MD - Last Filed: 08/23/24 08:23> Const: Vital Signs, click to edit/add: Vital Signs - 24 hr 08/20/24 19:45 08/20/24 19:56 08/20/24 19:59 Temperature 97.8 F Pulse Rate Pulse Rate [Pulse Oximeter] 65 57 L Respiratory Rate 18 16 22 Blood Pressure Blood Pressure [Ri ght Upper Arm] 162/96 H 167/101 H Pulse Oximetry 97 95 97 Oxygen Delivery Me thod Room Air Room Air 08/20/24 20:00 08/20/24 20:10 08/20/24 20:12 Temperature Pulse Rate Pulse Rate [Pulse Oximeter] Respiratory Rate 19 13 17 Blood Pressure Blood Pressure [Ri ght Upper Arm] Pulse Oximetry 97 97 96 Oxygen Delivery Me thod 08/20/24 20:13 08/20/24 20:15 08/20/24 20:20 Temperature Pulse Rate 55 L Pulse Rate [Pulse Oximeter] Respiratory Rate 16 Blood Pressure 155/102 H Blood Pressure [Ri ght Upper Arm] Pulse Oximetry 96 96 96 Oxygen Delivery Me thod 08/20/24 20:30 08/20/24 20:31 08/20/24 20:32 Temperature Pulse Rate Pulse Rate [Pulse Oximeter] Respiratory Rate Blood Pressure Blood Pressure [Ri ght Upper Arm] Pulse Oximetry 96 97 95 Oxygen Delivery Me thod 08/20/24 20:48 08/20/24 20:50 08/20/24 20:51 Temperature Pulse Rate Pulse Rate [Pulse Oximeter] Respiratory Rate 16 15 22 Blood Pressure Blood Pressure [Ri ght Upper Arm] Pulse Oximetry 96 95 Oxygen Delivery Me thod 08/20/24 21:00 08/20/24 21:05 08/20/24 21:10 Temperature Pulse Rate Pulse Rate [Pulse Oximeter] Respiratory Rate 18 12 Blood Pressure Blood Pressure [Ri ght Upper Arm] Pulse Oximetry 97 96 98 Oxygen Delivery Me thod 08/20/24 21:11 08/20/24 21:15 08/20/24 21:17 Temperature Pulse Rate 52 L 56 L Pulse Rate [Pulse Oximeter] Respiratory Rate 12 Blood Pressure 151/98 H Blood Pressure [Ri ght Upper Arm] Pulse Oximetry 98 97 97 Oxygen Delivery Me thod 08/20/24 21:30 08/20/24 21:32 08/20/24 21:45 Temperature Pulse Rate 62 56 L 55 L Pulse Rate [Pulse Oximeter] Respiratory Rate 14 Blood Pressure 133/88 Blood Pressure [Ri ght Upper Arm] Pulse Oximetry 95 93 93 Oxygen Delivery Me thod 08/20/24 21:47 08/20/24 21:48 08/20/24 22:11 Temperature Pulse Rate 54 L 54 L 68 Pulse Rate [Pulse Oximeter] Respiratory Rate 18 21 22 Blood Pressure 142/88 H Blood Pressure [Ri ght Upper Arm] Pulse Oximetry 94 94 97 Oxygen Delivery Me thod 08/20/24 22:15 08/20/24 22:17 08/20/24 22:30 Temperature Pulse Rate 68 64 65 Pulse Rate [Pulse Oximeter] Respiratory Rate 21 18 15 Blood Pressure 150/90 H Blood Pressure [Ri ght Upper Arm] Pulse Oximetry 99 99 98 Oxygen Delivery Me thod 08/20/24 22:32 08/20/24 22:45 08/20/24 22:47 Temperature Pulse Rate 65 70 75 Pulse Rate [Pulse Oximeter] Respiratory Rate 14 29 H 17 Blood Pressure 150/90 H 153/88 H Blood Pressure [Ri ght Upper Arm] Pulse Oximetry 96 96 97 Oxygen Delivery Me thod 08/20/24 23:00 08/20/24 23:02 08/20/24 23:15 Temperature Pulse Rate 67 69 71 Pulse Rate [Pulse Oximeter] Respiratory Rate 17 16 20 Blood Pressure 154/97 H Blood Pressure [Ri ght Upper Arm] Pulse Oximetry 96 95 97 Oxygen Delivery Me thod 08/20/24 23:23 08/20/24 23:30 08/20/24 23:31 Temperature Pulse Rate 68 69 67 Pulse Rate [Pulse Oximeter] Respiratory Rate 15 21 15 Blood Pressure 148/96 H 148/97 H Blood Pressure [Ri ght Upper Arm] Pulse Oximetry 97 96 95 Oxygen Delivery Me thod 08/20/24 23:32 08/20/24 23:42 08/21/24 00:02 Temperature Pulse Rate 69 69 64 Pulse Rate [Pulse Oximeter] Respiratory Rate 16 13 22 Blood Pressure 154/104 H 146/93 H Blood Pressure [Ri ght Upper Arm] Pulse Oximetry 95 98 96 Oxygen Delivery Me thod 08/21/24 00:22 08/21/24 00:42 08/21/24 01:02 Temperature Pulse Rate 66 70 64 Pulse Rate [Pulse Oximeter] Respiratory Rate 14 12 16 Blood Pressure 135/89 140/96 H 130/83 Blood Pressure [Ri ght Upper Arm] Pulse Oximetry 95 96 95 Oxygen Delivery Me thod 08/21/24 01:03 08/21/24 01:22 08/21/24 01:23 Temperature Pulse Rate 81 60 61 Pulse Rate [Pulse Oximeter] Respiratory Rate 26 H 15 15 Blood Pressure 142/90 H Blood Pressure [Ri ght Upper Arm] Pulse Oximetry 97 94 94 Oxygen Delivery Me thod 08/21/24 01:30 08/21/24 01:42 08/21/24 01:45 Temperature Pulse Rate 60 59 L 76 Pulse Rate [Pulse Oximeter] Respiratory Rate 17 18 18 Blood Pressure 129/84 Blood Pressure [Ri ght Upper Arm] Pulse Oximetry 94 94 93 Oxygen Delivery Me thod <Bonny Llanes MD - Last Filed: 08/23/24 08:23> Vital Signs, click to edit/add: Vital Signs - 24 hr 08/20/24 19:45 08/20/24 19:56 08/20/24 19:59 Temperature 97.8 F Pulse Rate Pulse Rate [Pulse Oximeter] 65 57 L Respiratory Rate 18 16 22 Blood Pressure Blood Pressure [Ri ght Upper Arm] 162/96 H 167/101 H Pulse Oximetry 97 95 97 Oxygen Delivery Me thod Room Air Room Air 08/20/24 20:00 08/20/24 20:10 08/20/24 20:12 Temperature Pulse Rate Pulse Rate [Pulse Oximeter] Respiratory Rate 19 13 17 Blood Pressure Blood Pressure [Ri ght Upper Arm] Pulse Oximetry 97 97 96 Oxygen Delivery Me thod 08/20/24 20:13 08/20/24 20:15 08/20/24 20:20 Temperature Pulse Rate 55 L Pulse Rate [Pulse Oximeter] Respiratory Rate 16 Blood Pressure 155/102 H Blood Pressure [Ri ght Upper Arm] Pulse Oximetry 96 96 96 Oxygen Delivery Me thod 08/20/24 20:30 08/20/24 20:31 08/20/24 20:32 Temperature Pulse Rate Pulse Rate [Pulse Oximeter] Respiratory Rate Blood Pressure Blood Pressure [Ri ght Upper Arm] Pulse Oximetry 96 97 95 Oxygen Delivery Me thod 08/20/24 20:48 08/20/24 20:50 08/20/24 20:51 Temperature Pulse Rate Pulse Rate [Pulse Oximeter] Respiratory Rate 16 15 22 Blood Pressure Blood Pressure [Ri ght Upper Arm] Pulse Oximetry 96 95 Oxygen Delivery Me thod 08/20/24 21:00 08/20/24 21:05 08/20/24 21:10 Temperature Pulse Rate Pulse Rate [Pulse Oximeter] Respiratory Rate 18 12 Blood Pressure Blood Pressure [Ri ght Upper Arm] Pulse Oximetry 97 96 98 Oxygen Delivery Me thod 08/20/24 21:11 08/20/24 21:15 08/20/24 21:17 Temperature Pulse Rate 52 L 56 L Pulse Rate [Pulse Oximeter] Respiratory Rate 12 Blood Pressure 151/98 H Blood Pressure [Ri ght Upper Arm] Pulse Oximetry 98 97 97 Oxygen Delivery Me thod 08/20/24 21:30 08/20/24 21:32 08/20/24 21:45 Temperature Pulse Rate 62 56 L 55 L Pulse Rate [Pulse Oximeter] Respiratory Rate 14 Blood Pressure 133/88 Blood Pressure [Ri ght Upper Arm] Pulse Oximetry 95 93 93 Oxygen Delivery Me thod 08/20/24 21:47 08/20/24 21:48 08/20/24 22:11 Temperature Pulse Rate 54 L 54 L 68 Pulse Rate [Pulse Oximeter] Respiratory Rate 18 21 22 Blood Pressure 142/88 H Blood Pressure [Ri ght Upper Arm] Pulse Oximetry 94 94 97 Oxygen Delivery Me thod 08/20/24 22:15 08/20/24 22:17 08/20/24 22:30 Temperature Pulse Rate 68 64 65 Pulse Rate [Pulse Oximeter] Respiratory Rate 21 18 15 Blood Pressure 150/90 H Blood Pressure [Ri ght Upper Arm] Pulse Oximetry 99 99 98 Oxygen Delivery Me thod 08/20/24 22:32 08/20/24 22:45 08/20/24 22:47 Temperature Pulse Rate 65 70 75 Pulse Rate [Pulse Oximeter] Respiratory Rate 14 29 H 17 Blood Pressure 150/90 H 153/88 H Blood Pressure [Ri ght Upper Arm] Pulse Oximetry 96 96 97 Oxygen Delivery Me thod 08/20/24 23:00 08/20/24 23:02 08/20/24 23:15 Temperature Pulse Rate 67 69 71 Pulse Rate [Pulse Oximeter] Respiratory Rate 17 16 20 Blood Pressure 154/97 H Blood Pressure [Ri ght Upper Arm] Pulse Oximetry 96 95 97 Oxygen Delivery Me thod 08/20/24 23:23 08/20/24 23:30 08/20/24 23:31 Temperature Pulse Rate 68 69 67 Pulse Rate [Pulse Oximeter] Respiratory Rate 15 21 15 Blood Pressure 148/96 H 148/97 H Blood Pressure [Ri ght Upper Arm] Pulse Oximetry 97 96 95 Oxygen Delivery Me thod 08/20/24 23:32 08/20/24 23:42 02/25/25 00:02 Temperature Pulse Rate 69 69 64 Pulse Rate [Pulse Oximeter] Respiratory Rate 16 13 22 Blood Pressure 154/104 H 146/93 H Blood Pressure [Ri ght Upper Arm] Pulse Oximetry 95 98 96 Oxygen Delivery Me thod 08/21/24 00:22 08/21/24 00:42 08/21/24 01:02 Temperature Pulse Rate 66 70 64 Pulse Rate [Pulse Oximeter] Respiratory Rate 14 12 16 Blood Pressure 135/89 140/96 H 130/83 Blood Pressure [Ri ght Upper Arm] Pulse Oximetry 95 96 95 Oxygen Delivery Me thod 08/21/24 01:03 08/21/24 01:22 08/21/24 01:23 Temperature Pulse Rate 81 60 61 Pulse Rate [Pulse Oximeter] Respiratory Rate 26 H 15 15 Blood Pressure 142/90 H Blood Pressure [Ri ght Upper Arm] Pulse Oximetry 97 94 94 Oxygen Delivery Me thod 08/21/24 01:30 08/21/24 01:42 08/21/24 01:45 Temperature Pulse Rate 60 59 L 76 Pulse Rate [Pulse Oximeter] Respiratory Rate 17 18 18 Blood Pressure 129/84 Blood Pressure [Ri ght Upper Arm] Pulse Oximetry 94 94 93 Oxygen Delivery Me thod <Jose Gibbs MD - Last Filed: 08/21/24 02:22> Course Course ED Course: On arrival, patient had an EKG. By my review, this shows a half a mm of ST depression in V1 and V2, T-wave is biphasic in V2. I do not see any ST elevation or, and the other precordial leads look unremarkable. I did repeat her EKG later in her ER stay when she had recurrent chest pain and that slight ST depression in V2 is gone. T-wave now more clearly inverted although not otherwise concerning and morphology or size. Precordial leads otherwise appear normal. Her initial troponin was 0. Other labs reviewed, notable for a normal white blood cell count and hemoglobin normal electrolytes. Her D-dimer was mildly elevated at 0.72 and I have ordered a CT scan of the chest. She did have a chest x-ray which by my review was negative. Final radiology read reviewed and also negative. She had aspirin following my initial evaluation of her. I also ordered a nitroglycerin. Per nursing report, this improved her pain although it did recur. At that time she had a repeat EKG. I have ordered a 2nd troponin as well. CT scan of the chest by my review did not show pulmonary embolism or significant infiltrate. Final radiology read reviewed and no acute findings. No significant coronary calcifications noted on CT scan. Labs otherwise unremarkable, with the exception of a 2 hour troponin which was elevated at 1.33. This was a point of care troponin in just to be certain we did run that as a lab troponin as well to confirm. Heparin bolus and drip was ordered per protocol. I placed a page at that time to Cardiology at [facility], as that is where she had her care for her previous dissection. I spoke with the PA at [facility]. He agreed with the need to transfer for angiogram for possible non STEMI versus recurrent coronary artery dissection. She has remained pain-free and hemodynamically stable and there is not a clear indication for emergent angiogram. They are willing to accept her for transfer there, but there will not be a bed available likely until tomorrow. At this time, this is acceptable to Cardiology. If she has recurrent pain, he recommended calling again to discuss to see if the rn dialysis would recommends more emergent angiogram at that time. [facility] and confirmed there [facility], so I do think that [facility] is our best option at this point. Patient and her would prefer that as well. Patient will be signed out to the oncoming physician for care overnight. <Bonny Llanes MD - Last Filed: 08/23/24 08:23> Reevaluation(s) Time of Reevaluation #1: 02:19 <Jose Gibbs MD - Last Filed: 08/21/24 02:22> Reevaluation #1: I spoke to the patient, her troponin came back at 9, this is a significant elevation from her 1.3. She still is pain-free, and I reviewed her EKG and there is no acute changes, we did discuss this with the [place] [facility] [place]. He then discuss this with in the cardiac ICU, they recommend transfer, they recommend stopping the heparin, and starting nitroglycerin, and titrating to a map of 65 to 70. We will arrange ACLS transport I then spoke to the patient and informed her of the results, Her blood pressure currently is 136 on 82, heart rate is 60. Chest is good air entry bilaterally no wheezing crackles noted heart sounds are normal. Assessment: Elevated troponin in the setting of previous coronary artery disease with SCAD. Plan: Transfer to [place], nitro drip, cardiac CCU per <Jose Gibbs MD - Last Filed: 08/21/24 02:22> Vital Signs Vital signs: Initial Vital Signs Temperature 97.8 F 08/20/24 19:45 Temperature Source Temporal Artery Scan 08/20/24 19:45 Pulse Rate 65 08/20/24 19:45 Respiratory Rate 18 08/20/24 19:45 Blood Pressure 162/96 H 08/20/24 19:45 Blood Pressure Mean 118 H 08/20/24 19:45 Pulse Oximetry 97 08/20/24 19:45 Oxygen Delivery Method Room Air 08/20/24 19:45 Vital Signs Temperature 97.8 F 08/20/24 19:45 Pulse Rate 65 08/20/24 19:45 Respiratory Rate 18 08/20/24 19:45 Blood Pressure 162/96 H 08/20/24 19:45 Pulse Oximetry 97 08/20/24 19:45 Oxygen Delivery Method Room Air 08/20/24 19:45 Temperature 97.8 F 08/20/24 19:45 Pulse Rate 68 08/21/24 02:15 Respiratory Rate 16 08/21/24 02:02 Blood Pressure 136/85 08/21/24 02:02 Pulse Oximetry 97 08/21/24 02:15 Oxygen Delivery Method Room Air 08/20/24 19:56 <Bonny Llanes MD - Last Filed: 08/23/24 08:23> Initial Vital Signs Temperature 97.8 F 08/20/24 19:45 Temperature Source Temporal Artery Scan 08/20/24 19:45 Pulse Rate 65 08/20/24 19:45 Respiratory Rate 18 08/20/24 19:45 Blood Pressure 162/96 H 08/20/24 19:45 Blood Pressure Mean 118 H 08/20/24 19:45 Pulse Oximetry 97 08/20/24 19:45 Oxygen Delivery Method Room Air 08/20/24 19:45 Vital Signs Temperature 97.8 F 08/20/24 19:45 Pulse Rate 65 08/20/24 19:45 Respiratory Rate 18 08/20/24 19:45 Blood Pressure 162/96 H 08/20/24 19:45 Pulse Oximetry 97 08/20/24 19:45 Oxygen Delivery Method Room Air 08/20/24 19:45 Temperature 97.8 F 08/20/24 19:45 Pulse Rate 68 08/21/24 02:15 Respiratory Rate 16 08/21/24 02:02 Blood Pressure 136/85 08/21/24 02:02 Pulse Oximetry 97 08/21/24 02:15 Oxygen Delivery Method Room Air 08/20/24 19:56 <Jose Gibbs MD - Last Filed: 08/21/24 02:22> Medications Administered Medications: Discontinued Medications Generic Name Dose Route Start Last Admin Trade Name Freq PRN Reason Stop Dose Admin Aspirin 324 mg 08/20/24 20:13 08/20/24 20:27 Aspirin 81 Mg Tab.Chew PO 08/20/24 20:14 324 mg ONCE ONE Administration Heparin Sodium (Porcine) 4,000 unit 08/20/24 23:24 08/20/24 23:33 Heparin 5,000 Unit/0.5 Ml Inj IVP 08/20/24 23:25 4,000 unit ONCE ONE Administration Heparin Sodium/Dextrose 25,000 unit in 500 mls @ 0 mls/hr 08/20/24 23:30 08/21/24 02:16 Heparin IV 0 unit/hr .Q0M MEDINA 0 mls/hr Infusion Protocol Per Protocol Heparin Sodium/Dextrose 25,000 unit in 500 mls @ 20 mls/hr 08/21/24 00:00 08/21/24 00:02 Heparin IV Not Given .Q24H MEDINA Protocol Per Protocol Nitroglycerin/Dextrose 25,000 mcg in 250 mls @ 3 mls/hr 08/21/24 02:11 08/21/24 02:18 Nitroglycerin/Dextrose IVPB 5 mcg/min .TITRATE PRN 3 mls/hr Chest Pain Administration Protocol 5 MCG/MIN Nitroglycerin 0.4 mg 08/20/24 20:13 08/20/24 20:28 Nitroglycerin 0.4 Mg Tab.Subl SUBLINGUAL 08/20/24 20:14 0.4 mg ONCE ONE Administration Nitroglycerin 0.4 mg 08/20/24 21:16 08/20/24 21:20 Nitroglycerin 0.4 Mg Tab.Subl SUBLINGUAL 0.4 mg Q5M PRN Administration <Bonny Llanes MD - Last Filed: 08/23/24 08:23> Discontinued Medications Generic Name Dose Route Start Last Admin Trade Name Vin PRN Reason Stop Dose Admin Aspirin 324 mg 08/20/24 20:13 08/20/24 20:27 Aspirin 81 Mg Tab.Chew PO 08/20/24 20:14 324 mg ONCE ONE Administration Heparin Sodium (Porcine) 4,000 unit 08/20/24 23:24 08/20/24 23:33 Heparin 5,000 Unit/0.5 Ml Inj IVP 08/20/24 23:25 4,000 unit ONCE ONE Administration Heparin Sodium/Dextrose 25,000 unit in 500 mls @ 0 mls/hr 08/20/24 23:30 08/21/24 02:16 Heparin IV 0 unit/hr .Q0M MEDINA 0 mls/hr Infusion Protocol Per Protocol Heparin Sodium/Dextrose 25,000 unit in 500 mls @ 20 mls/hr 08/21/24 00:00 08/21/24 00:02 Heparin IV Not Given .Q24H MEDINA Protocol Per Protocol Nitroglycerin/Dextrose 25,000 mcg in 250 mls @ 3 mls/hr 08/21/24 02:11 08/21/24 02:18 Nitroglycerin/Dextrose IVPB 5 mcg/min .TITRATE PRN 3 mls/hr Chest Pain Administration Protocol 5 MCG/MIN Nitroglycerin 0.4 mg 08/20/24 20:13 08/20/24 20:28 Nitroglycerin 0.4 Mg Tab.Subl SUBLINGUAL 08/20/24 20:14 0.4 mg ONCE ONE Administration Nitroglycerin 0.4 mg 08/20/24 21:16 08/20/24 21:20 Nitroglycerin 0.4 Mg Tab.Subl SUBLINGUAL 0.4 mg Q5M PRN Administration <Jose Gibbs MD - Last Filed: 08/21/24 02:22> Medical Decision Making Lab Data Lab results reviewed: Yes I reviewed the patient's lab results <Bonny Llanes MD - Last Filed: 08/23/24 08:23> Labs: Lab Results 08/20/24 08/20/24 08/20/24 Range/Units 20:00 20:00 20:00 WBC 7.52 (4.50-11.00) K/uL RBC 4.80 (4.00-5.20) m/uL Hgb 13.9 (12.0-16.0) gm/dL Hct 44.1 (33.0-51.0) % MCV 92 (80-100) fL MCH 29 (26-34) pg MCHC 32 (32-36) gm/dL RDW Coeff of [place] 13.0 (11.5-15.5) % Plt Count 252 (140-440) K/uL Neut % (Auto) 44.2 (42.0-72.0) % Lymph % (Auto) 43.2 (20-44) % [place] % (Auto) 10.0 (0.0-11.0) % Eos % (Auto) 2.0 (0.0-7.0) % Baso % (Auto) 0.5 (0.0-3.0) % Neut # (Auto) 3.32 (1.7-7.0) K/uL Lymph # (Auto) 3.25 H (0.90-2.90) K/uL [place] # (Auto) 0.80 (0.00-0.90) K/UL Eos # (Auto) 0.15 (0.00-0.50) K/uL Baso # (Auto) 0.04 (0.00-0.30) K/uL Abs Immat Gran (auto) 0.01 (0.00-0.30) K/uL Imm/Tot Granulo (auto) 0.1 % INR (0.91-1.10) APTT (23-33) Seconds D-Dimer Quant (PE/DVT) 0.72 H (0.00-0.50) ug/ml Sodium Cancelled 138 Potassium Cancelled 3.9 Chloride Cancelled Carbon Dioxide Anion Gap BUN Creatinine Estimated Creat Clear Estimated GFR Glucose Calcium Total Bilirubin (0.1-1.5) mg/dL Direct Bilirubin (0.0-0.5) mg/dL AST (12-35) U/L ALT (4-35) U/L Alkaline Phosphatase (40-150) U/L Troponin I (0.01-0.04) ng/mL C-Reactive Protein (0.5-1.0) mg/dL Total Protein (6.0-8.3) g/dL Albumin (3.3-5.0) g/dL Lipase (23-300) U/L Bordetella pertussis Spec Source Bordetella pertussis (PCR) B parapertussis DNA PCR Lab Acknowledgement POC Troponin I (0.01-0.04) ng/ml 08/20/24 08/20/24 08/20/24 Range/Units 20:00 20:00 20:00 WBC (4.50-11.00) K/uL RBC (4.00-5.20) m/uL Hgb (12.0-16.0) gm/dL Hct (33.0-51.0) % MCV (80-100) fL MCH (26-34) pg MCHC (32-36) gm/dL RDW Coeff of [place] (11.5-15.5) % Plt Count (140-440) K/uL Neut % (Auto) (42.0-72.0) % Lymph % (Auto) (20-44) % [place] % (Auto) (0.0-11.0) % Eos % (Auto) (0.0-7.0) % Baso % (Auto) (0.0-3.0) % Neut # (Auto) (1.7-7.0) K/uL Lymph # (Auto) (0.90-2.90) K/uL [place] # (Auto) (0.00-0.90) K/UL Eos # (Auto) (0.00-0.50) K/uL Baso # (Auto) (0.00-0.30) K/uL Abs Immat Gran (auto) (0.00-0.30) K/uL Imm/Tot Granulo (auto) % INR (0.91-1.10) APTT (23-33) Seconds D-Dimer Quant (PE/DVT) (0.00-0.50) ug/ml Sodium Potassium Chloride 104 Carbon Dioxide Cancelled 25 Anion Gap Cancelled 9 BUN Cancelled Creatinine Estimated Creat Clear Estimated GFR Glucose Calcium Total Bilirubin (0.1-1.5) mg/dL Direct Bilirubin (0.0-0.5) mg/dL AST (12-35) U/L ALT (4-35) U/L Alkaline Phosphatase (40-150) U/L Troponin I (0.01-0.04) ng/mL C-Reactive Protein (0.5-1.0) mg/dL Total Protein (6.0-8.3) g/dL Albumin (3.3-5.0) g/dL Lipase (23-300) U/L Bordetella pertussis Spec Source Bordetella pertussis (PCR) B parapertussis DNA PCR Lab Acknowledgement POC Troponin I (0.01-0.04) ng/ml 08/20/24 08/20/24 08/20/24 Range/Units 20:00 20:00 20:00 WBC (4.50-11.00) K/uL RBC (4.00-5.20) m/uL Hgb (12.0-16.0) gm/dL Hct (33.0-51.0) % MCV (80-100) fL MCH (26-34) pg MCHC (32-36) gm/dL RDW Coeff of [place] (11.5-15.5) % Plt Count (140-440) K/uL Neut % (Auto) (42.0-72.0) % Lymph % (Auto) (20-44) % [place] % (Auto) (0.0-11.0) % Eos % (Auto) (0.0-7.0) % Baso % (Auto) (0.0-3.0) % Neut # (Auto) (1.7-7.0) K/uL Lymph # (Auto) (0.90-2.90) K/uL [place] # (Auto) (0.00-0.90) K/UL Eos # (Auto) (0.00-0.50) K/uL Baso # (Auto) (0.00-0.30) K/uL Abs Immat Gran (auto) (0.00-0.30) K/uL Imm/Tot Granulo (auto) % INR (0.91-1.10) APTT (23-33) Seconds D-Dimer Quant (PE/DVT) (0.00-0.50) ug/ml Sodium Potassium Chloride Carbon Dioxide Anion Gap BUN 14 Creatinine Cancelled 0.9 Estimated Creat Clear Cancelled 50.37 Estimated GFR Cancelled Glucose Calcium Total Bilirubin (0.1-1.5) mg/dL Direct Bilirubin (0.0-0.5) mg/dL AST (12-35) U/L ALT (4-35) U/L Alkaline Phosphatase (40-150) U/L Troponin I (0.01-0.04) ng/mL C-Reactive Protein (0.5-1.0) mg/dL Total Protein (6.0-8.3) g/dL Albumin (3.3-5.0) g/dL Lipase (23-300) U/L Bordetella pertussis Spec Source Bordetella pertussis (PCR) B parapertussis DNA PCR Lab Acknowledgement POC Troponin I (0.01-0.04) ng/ml 08/20/24 08/20/24 08/20/24 Range/Units 20:00 20:00 20:00 WBC (4.50-11.00) K/uL RBC (4.00-5.20) m/uL Hgb (12.0-16.0) gm/dL Hct (33.0-51.0) % MCV (80-100) fL MCH (26-34) pg MCHC (32-36) gm/dL RDW Coeff of [place] (11.5-15.5) % Plt Count (140-440) K/uL Neut % (Auto) (42.0-72.0) % Lymph % (Auto) (20-44) % [place] % (Auto) (0.0-11.0) % Eos % (Auto) (0.0-7.0) % Baso % (Auto) (0.0-3.0) % Neut # (Auto) (1.7-7.0) K/uL Lymph # (Auto) (0.90-2.90) K/uL [place] # (Auto) (0.00-0.90) K/UL Eos # (Auto) (0.00-0.50) K/uL Baso # (Auto) (0.00-0.30) K/uL Abs Immat Gran (auto) (0.00-0.30) K/uL Imm/Tot Granulo (auto) % INR (0.91-1.10) APTT (23-33) Seconds D-Dimer Quant (PE/DVT) (0.00-0.50) ug/ml Sodium Potassium Chloride Carbon Dioxide Anion Gap BUN Creatinine Estimated Creat Clear Estimated GFR 72 Glucose Cancelled 92 Calcium Cancelled 8.9 Total Bilirubin 0.4 (0.1-1.5) mg/dL Direct Bilirubin 0.3 (0.0-0.5) mg/dL AST 24 (12-35) U/L ALT 14 (4-35) U/L Alkaline Phosphatase 90 (40-150) U/L Troponin I (0.01-0.04) ng/mL C-Reactive Protein < 0.5 L (0.5-1.0) mg/dL Total Protein 6.7 (6.0-8.3) g/dL Albumin 4.2 (3.3-5.0) g/dL Lipase 240 (23-300) U/L Bordetella pertussis Spec Source Bordetella pertussis (PCR) B parapertussis DNA PCR Lab Acknowledgement POC Troponin I (0.01-0.04) ng/ml 08/20/24 08/20/24 08/20/24 Range/Units 20:14 20:19 22:22 WBC (4.50-11.00) K/uL RBC (4.00-5.20) m/uL Hgb (12.0-16.0) gm/dL Hct (33.0-51.0) % MCV (80-100) fL MCH (26-34) pg MCHC (32-36) gm/dL RDW Coeff of [place] (11.5-15.5) % Plt Count (140-440) K/uL Neut % (Auto) (42.0-72.0) % Lymph % (Auto) (20-44) % [place] % (Auto) (0.0-11.0) % Eos % (Auto) (0.0-7.0) % Baso % (Auto) (0.0-3.0) % Neut # (Auto) (1.7-7.0) K/uL Lymph # (Auto) (0.90-2.90) K/uL [place] # (Auto) (0.00-0.90) K/UL Eos # (Auto) (0.00-0.50) K/uL Baso # (Auto) (0.00-0.30) K/uL Abs Immat Gran (auto) (0.00-0.30) K/uL Imm/Tot Granulo (auto) % INR 0.91 (0.91-1.10) APTT 26 (23-33) Seconds D-Dimer Quant (PE/DVT) (0.00-0.50) ug/ml Sodium Potassium Chloride Carbon Dioxide Anion Gap BUN Creatinine Estimated Creat Clear Estimated GFR Glucose Calcium Total Bilirubin (0.1-1.5) mg/dL Direct Bilirubin (0.0-0.5) mg/dL AST (12-35) U/L ALT (4-35) U/L Alkaline Phosphatase (40-150) U/L Troponin I (0.01-0.04) ng/mL C-Reactive Protein (0.5-1.0) mg/dL Total Protein (6.0-8.3) g/dL Albumin (3.3-5.0) g/dL Lipase (23-300) U/L Bordetella pertussis Spec Source Cancelled Bordetella pertussis (PCR) Cancelled B parapertussis DNA PCR Cancelled Lab Acknowledgement POC Troponin I 0.01 (0.01-0.04) ng/ml 08/20/24 08/20/24 08/20/24 Range/Units 22:26 22:39 23:33 WBC (4.50-11.00) K/uL RBC (4.00-5.20) m/uL Hgb (12.0-16.0) gm/dL Hct (33.0-51.0) % MCV (80-100) fL MCH (26-34) pg MCHC (32-36) gm/dL RDW Coeff of [place] (11.5-15.5) % Plt Count (140-440) K/uL Neut % (Auto) (42.0-72.0) % Lymph % (Auto) (20-44) % [place] % (Auto) (0.0-11.0) % Eos % (Auto) (0.0-7.0) % Baso % (Auto) (0.0-3.0) % Neut # (Auto) (1.7-7.0) K/uL Lymph # (Auto) (0.90-2.90) K/uL [place] # (Auto) (0.00-0.90) K/UL Eos # (Auto) (0.00-0.50) K/uL Baso # (Auto) (0.00-0.30) K/uL Abs Immat Gran (auto) (0.00-0.30) K/uL Imm/Tot Granulo (auto) % INR (0.91-1.10) APTT (23-33) Seconds D-Dimer Quant (PE/DVT) (0.00-0.50) ug/ml Sodium Potassium Chloride Carbon Dioxide Anion Gap BUN Creatinine Estimated Creat Clear Estimated GFR Glucose Calcium Total Bilirubin (0.1-1.5) mg/dL Direct Bilirubin (0.0-0.5) mg/dL AST (12-35) U/L ALT (4-35) U/L Alkaline Phosphatase (40-150) U/L Troponin I 1.35 H* (0.01-0.04) ng/mL C-Reactive Protein (0.5-1.0) mg/dL Total Protein (6.0-8.3) g/dL Albumin (3.3-5.0) g/dL Lipase (23-300) U/L Bordetella pertussis Spec Source Bordetella pertussis (PCR) B parapertussis DNA PCR Lab Acknowledgement Test Added POC Troponin I 1.33 H (0.01-0.04) ng/ml 08/21/24 Range/Units 00:30 WBC (4.50-11.00) K/uL RBC (4.00-5.20) m/uL Hgb (12.0-16.0) gm/dL Hct (33.0-51.0) % MCV (80-100) fL MCH (26-34) pg MCHC (32-36) gm/dL RDW Coeff of [place] (11.5-15.5) % Plt Count (140-440) K/uL Neut % (Auto) (42.0-72.0) % Lymph % (Auto) (20-44) % [place] % (Auto) (0.0-11.0) % Eos % (Auto) (0.0-7.0) % Baso % (Auto) (0.0-3.0) % Neut # (Auto) (1.7-7.0) K/uL Lymph # (Auto) (0.90-2.90) K/uL [place] # (Auto) (0.00-0.90) K/UL Eos # (Auto) (0.00-0.50) K/uL Baso # (Auto) (0.00-0.30) K/uL Abs Immat Gran (auto) (0.00-0.30) K/uL Imm/Tot Granulo (auto) % INR (0.91-1.10) APTT (23-33) Seconds D-Dimer Quant (PE/DVT) (0.00-0.50) ug/ml Sodium Potassium Chloride Carbon Dioxide Anion Gap BUN Creatinine Estimated Creat Clear Estimated GFR Glucose Calcium Total Bilirubin (0.1-1.5) mg/dL Direct Bilirubin (0.0-0.5) mg/dL AST (12-35) U/L ALT (4-35) U/L Alkaline Phosphatase (40-150) U/L Troponin I (0.01-0.04) ng/mL C-Reactive Protein (0.5-1.0) mg/dL Total Protein (6.0-8.3) g/dL Albumin (3.3-5.0) g/dL Lipase (23-300) U/L Bordetella pertussis Spec Source Bordetella pertussis (PCR) B parapertussis DNA PCR Lab Acknowledgement POC Troponin I 9.78 H (0.01-0.04) ng/ml <Bonny Llanes MD - Last Filed: 08/23/24 08:23> Lab Results 08/20/24 08/20/24 08/20/24 Range/Units 20:00 20:00 20:00 WBC 7.52 (4.50-11.00) K/uL RBC 4.80 (4.00-5.20) m/uL Hgb 13.9 (12.0-16.0) gm/dL Hct 44.1 (33.0-51.0) % MCV 92 (80-100) fL MCH 29 (26-34) pg MCHC 32 (32-36) gm/dL RDW Coeff of [place] 13.0 (11.5-15.5) % Plt Count 252 (140-440) K/uL Neut % (Auto) 44.2 (42.0-72.0) % Lymph % (Auto) 43.2 (20-44) % [place] % (Auto) 10.0 (0.0-11.0) % Eos % (Auto) 2.0 (0.0-7.0) % Baso % (Auto) 0.5 (0.0-3.0) % Neut # (Auto) 3.32 (1.7-7.0) K/uL Lymph # (Auto) 3.25 H (0.90-2.90) K/uL [place] # (Auto) 0.80 (0.00-0.90) K/UL Eos # (Auto) 0.15 (0.00-0.50) K/uL Baso # (Auto) 0.04 (0.00-0.30) K/uL Abs Immat Gran (auto) 0.01 (0.00-0.30) K/uL Imm/Tot Granulo (auto) 0.1 % INR (0.91-1.10) APTT (23-33) Seconds D-Dimer Quant (PE/DVT) 0.72 H (0.00-0.50) ug/ml Sodium Cancelled 138 Potassium Cancelled 3.9 Chloride Cancelled Carbon Dioxide Anion Gap BUN Creatinine Estimated Creat Clear Estimated GFR Glucose Calcium Total Bilirubin (0.1-1.5) mg/dL Direct Bilirubin (0.0-0.5) mg/dL AST (12-35) U/L ALT (4-35) U/L Alkaline Phosphatase (40-150) U/L Troponin I (0.01-0.04) ng/mL C-Reactive Protein (0.5-1.0) mg/dL Total Protein (6.0-8.3) g/dL Albumin (3.3-5.0) g/dL Lipase (23-300) U/L Bordetella pertussis Spec Source Bordetella pertussis (PCR) B parapertussis DNA PCR Lab Acknowledgement POC Troponin I (0.01-0.04) ng/ml 08/20/24 08/20/24 08/20/24 Range/Units 20:00 20:00 20:00 WBC (4.50-11.00) K/uL RBC (4.00-5.20) m/uL Hgb (12.0-16.0) gm/dL Hct (33.0-51.0) % MCV (80-100) fL MCH (26-34) pg MCHC (32-36) gm/dL RDW Coeff of [place] (11.5-15.5) % Plt Count (140-440) K/uL Neut % (Auto) (42.0-72.0) % Lymph % (Auto) (20-44) % [place] % (Auto) (0.0-11.0) % Eos % (Auto) (0.0-7.0) % Baso % (Auto) (0.0-3.0) % Neut # (Auto) (1.7-7.0) K/uL Lymph # (Auto) (0.90-2.90) K/uL [place] # (Auto) (0.00-0.90) K/UL Eos # (Auto) (0.00-0.50) K/uL Baso # (Auto) (0.00-0.30) K/uL Abs Immat Gran (auto) (0.00-0.30) K/uL Imm/Tot Granulo (auto) % INR (0.91-1.10) APTT (23-33) Seconds D-Dimer Quant (PE/DVT) (0.00-0.50) ug/ml Sodium Potassium Chloride 104 Carbon Dioxide Cancelled 25 Anion Gap Cancelled 9 BUN Cancelled Creatinine Estimated Creat Clear Estimated GFR Glucose Calcium Total Bilirubin (0.1-1.5) mg/dL Direct Bilirubin (0.0-0.5) mg/dL AST (12-35) U/L ALT (4-35) U/L Alkaline Phosphatase (40-150) U/L Troponin I (0.01-0.04) ng/mL C-Reactive Protein (0.5-1.0) mg/dL Total Protein (6.0-8.3) g/dL Albumin (3.3-5.0) g/dL Lipase (23-300) U/L Bordetella pertussis Spec Source Bordetella pertussis (PCR) B parapertussis DNA PCR Lab Acknowledgement POC Troponin I (0.01-0.04) ng/ml 08/20/24 08/20/24 08/20/24 Range/Units 20:00 20:00 20:00 WBC (4.50-11.00) K/uL RBC (4.00-5.20) m/uL Hgb (12.0-16.0) gm/dL Hct (33.0-51.0) % MCV (80-100) fL MCH (26-34) pg MCHC (32-36) gm/dL RDW Coeff of [place] (11.5-15.5) % Plt Count (140-440) K/uL Neut % (Auto) (42.0-72.0) % Lymph % (Auto) (20-44) % [place] % (Auto) (0.0-11.0) % Eos % (Auto) (0.0-7.0) % Baso % (Auto) (0.0-3.0) % Neut # (Auto) (1.7-7.0) K/uL Lymph # (Auto) (0.90-2.90) K/uL [place] # (Auto) (0.00-0.90) K/UL Eos # (Auto) (0.00-0.50) K/uL Baso # (Auto) (0.00-0.30) K/uL Abs Immat Gran (auto) (0.00-0.30) K/uL Imm/Tot Granulo (auto) % INR (0.91-1.10) APTT (23-33) Seconds D-Dimer Quant (PE/DVT) (0.00-0.50) ug/ml Sodium Potassium Chloride Carbon Dioxide Anion Gap BUN 14 Creatinine Cancelled 0.9 Estimated Creat Clear Cancelled 50.37 Estimated GFR Cancelled Glucose Calcium Total Bilirubin (0.1-1.5) mg/dL Direct Bilirubin (0.0-0.5) mg/dL AST (12-35) U/L ALT (4-35) U/L Alkaline Phosphatase (40-150) U/L Troponin I (0.01-0.04) ng/mL C-Reactive Protein (0.5-1.0) mg/dL Total Protein (6.0-8.3) g/dL Albumin (3.3-5.0) g/dL Lipase (23-300) U/L Bordetella pertussis Spec Source Bordetella pertussis (PCR) B parapertussis DNA PCR Lab Acknowledgement POC Troponin I (0.01-0.04) ng/ml 08/20/24 08/20/24 08/20/24 Range/Units 20:00 20:00 20:00 WBC (4.50-11.00) K/uL RBC (4.00-5.20) m/uL Hgb (12.0-16.0) gm/dL Hct (33.0-51.0) % MCV (80-100) fL MCH (26-34) pg MCHC (32-36) gm/dL RDW Coeff of [place] (11.5-15.5) % Plt Count (140-440) K/uL Neut % (Auto) (42.0-72.0) % Lymph % (Auto) (20-44) % [place] % (Auto) (0.0-11.0) % Eos % (Auto) (0.0-7.0) % Baso % (Auto) (0.0-3.0) % Neut # (Auto) (1.7-7.0) K/uL Lymph # (Auto) (0.90-2.90) K/uL [place] # (Auto) (0.00-0.90) K/UL Eos # (Auto) (0.00-0.50) K/uL Baso # (Auto) (0.00-0.30) K/uL Abs Immat Gran (auto) (0.00-0.30) K/uL Imm/Tot Granulo (auto) % INR (0.91-1.10) APTT (23-33) Seconds D-Dimer Quant (PE/DVT) (0.00-0.50) ug/ml Sodium Potassium Chloride Carbon Dioxide Anion Gap BUN Creatinine Estimated Creat Clear Estimated GFR 72 Glucose Cancelled 92 Calcium Cancelled 8.9 Total Bilirubin 0.4 (0.1-1.5) mg/dL Direct Bilirubin 0.3 (0.0-0.5) mg/dL AST 24 (12-35) U/L ALT 14 (4-35) U/L Alkaline Phosphatase 90 (40-150) U/L Troponin I (0.01-0.04) ng/mL C-Reactive Protein < 0.5 L (0.5-1.0) mg/dL Total Protein 6.7 (6.0-8.3) g/dL Albumin 4.2 (3.3-5.0) g/dL Lipase 240 (23-300) U/L Bordetella pertussis Spec Source Bordetella pertussis (PCR) B parapertussis DNA PCR Lab Acknowledgement POC Troponin I (0.01-0.04) ng/ml 08/20/24 08/20/24 08/20/24 Range/Units 20:14 20:19 22:22 WBC (4.50-11.00) K/uL RBC (4.00-5.20) m/uL Hgb (12.0-16.0) gm/dL Hct (33.0-51.0) % MCV (80-100) fL MCH (26-34) pg MCHC (32-36) gm/dL RDW Coeff of [place] (11.5-15.5) % Plt Count (140-440) K/uL Neut % (Auto) (42.0-72.0) % Lymph % (Auto) (20-44) % [place] % (Auto) (0.0-11.0) % Eos % (Auto) (0.0-7.0) % Baso % (Auto) (0.0-3.0) % Neut # (Auto) (1.7-7.0) K/uL Lymph # (Auto) (0.90-2.90) K/uL [place] # (Auto) (0.00-0.90) K/UL Eos # (Auto) (0.00-0.50) K/uL Baso # (Auto) (0.00-0.30) K/uL Abs Immat Gran (auto) (0.00-0.30) K/uL Imm/Tot Granulo (auto) % INR 0.91 (0.91-1.10) APTT 26 (23-33) Seconds D-Dimer Quant (PE/DVT) (0.00-0.50) ug/ml Sodium Potassium Chloride Carbon Dioxide Anion Gap BUN Creatinine Estimated Creat Clear Estimated GFR Glucose Calcium Total Bilirubin (0.1-1.5) mg/dL Direct Bilirubin (0.0-0.5) mg/dL AST (12-35) U/L ALT (4-35) U/L Alkaline Phosphatase (40-150) U/L Troponin I (0.01-0.04) ng/mL C-Reactive Protein (0.5-1.0) mg/dL Total Protein (6.0-8.3) g/dL Albumin (3.3-5.0) g/dL Lipase (23-300) U/L Bordetella pertussis Spec Source Cancelled Bordetella pertussis (PCR) Cancelled B parapertussis DNA PCR Cancelled Lab Acknowledgement POC Troponin I 0.01 (0.01-0.04) ng/ml 08/20/24 08/20/24 08/20/24 Range/Units 22:26 22:39 23:33 WBC (4.50-11.00) K/uL RBC (4.00-5.20) m/uL Hgb (12.0-16.0) gm/dL Hct (33.0-51.0) % MCV (80-100) fL MCH (26-34) pg MCHC (32-36) gm/dL RDW Coeff of [place] (11.5-15.5) % Plt Count (140-440) K/uL Neut % (Auto) (42.0-72.0) % Lymph % (Auto) (20-44) % [place] % (Auto) (0.0-11.0) % Eos % (Auto) (0.0-7.0) % Baso % (Auto) (0.0-3.0) % Neut # (Auto) (1.7-7.0) K/uL Lymph # (Auto) (0.90-2.90) K/uL [place] # (Auto) (0.00-0.90) K/UL Eos # (Auto) (0.00-0.50) K/uL Baso # (Auto) (0.00-0.30) K/uL Abs Immat Gran (auto) (0.00-0.30) K/uL Imm/Tot Granulo (auto) % INR (0.91-1.10) APTT (23-33) Seconds D-Dimer Quant (PE/DVT) (0.00-0.50) ug/ml Sodium Potassium Chloride Carbon Dioxide Anion Gap BUN Creatinine Estimated Creat Clear Estimated GFR Glucose Calcium Total Bilirubin (0.1-1.5) mg/dL Direct Bilirubin (0.0-0.5) mg/dL AST (12-35) U/L ALT (4-35) U/L Alkaline Phosphatase (40-150) U/L Troponin I 1.35 H* (0.01-0.04) ng/mL C-Reactive Protein (0.5-1.0) mg/dL Total Protein (6.0-8.3) g/dL Albumin (3.3-5.0) g/dL Lipase (23-300) U/L Bordetella pertussis Spec Source Bordetella pertussis (PCR) B parapertussis DNA PCR Lab Acknowledgement Test Added POC Troponin I 1.33 H (0.01-0.04) ng/ml 08/21/24 Range/Units 00:30 WBC (4.50-11.00) K/uL RBC (4.00-5.20) m/uL Hgb (12.0-16.0) gm/dL Hct (33.0-51.0) % MCV (80-100) fL MCH (26-34) pg MCHC (32-36) gm/dL RDW Coeff of [place] (11.5-15.5) % Plt Count (140-440) K/uL Neut % (Auto) (42.0-72.0) % Lymph % (Auto) (20-44) % [place] % (Auto) (0.0-11.0) % Eos % (Auto) (0.0-7.0) % Baso % (Auto) (0.0-3.0) % Neut # (Auto) (1.7-7.0) K/uL Lymph # (Auto) (0.90-2.90) K/uL [place] # (Auto) (0.00-0.90) K/UL Eos # (Auto) (0.00-0.50) K/uL Baso # (Auto) (0.00-0.30) K/uL Abs Immat Gran (auto) (0.00-0.30) K/uL Imm/Tot Granulo (auto) % INR (0.91-1.10) APTT (23-33) Seconds D-Dimer Quant (PE/DVT) (0.00-0.50) ug/ml Sodium Potassium Chloride Carbon Dioxide Anion Gap BUN Creatinine Estimated Creat Clear Estimated GFR Glucose Calcium Total Bilirubin (0.1-1.5) mg/dL Direct Bilirubin (0.0-0.5) mg/dL AST (12-35) U/L ALT (4-35) U/L Alkaline Phosphatase (40-150) U/L Troponin I (0.01-0.04) ng/mL C-Reactive Protein (0.5-1.0) mg/dL Total Protein (6.0-8.3) g/dL Albumin (3.3-5.0) g/dL Lipase (23-300) U/L Bordetella pertussis Spec Source Bordetella pertussis (PCR) B parapertussis DNA PCR Lab Acknowledgement POC Troponin I 9.78 H (0.01-0.04) ng/ml <Jose Gibbs MD - Last Filed: 08/21/24 02:22> Imaging Data Chest x-ray: Attestation: I have reviewed the pertinent imaging results. <Bonny Llanes MD - Last Filed: 08/23/24 08:23> Radiologist's impression: Patient: Dianne Tolentino MR#: [id number] : 1960 Acct:[id number] Loc: ED Service Date: 08/20/[address]: Ordering Physician: Bonny Llanes M.D. Date of Service: 08/20/24 Procedure(s): XR chest 2V Accession Number(s): [id number] cc: Bonny Llanes M.D.; Provider,Not a Local~ For Patients: As a result of the Century Cures Act, medical imaging exams and procedure reports are released immediately into your electronic medical record. You may view this report before your referring provider. If you have questions, please contact your health care provider. INDICATION: Chest pain. TECHNIQUE: Chest 2 views. COMPARISON: None. FINDINGS: Cardiovascular and mediastinum: Heart size is normal. Unremarkable mediastinum. Lungs and pleural spaces: Lungs are clear. No sign of infiltrate or mass. No sign of pleural effusion. No pneumothorax. Bones and soft tissues: No significant findings. IMPRESSION: Negative chest. Dictated by Geraldo Springer MD @ 08/20/2024 8:54:58 PM <Bonny Llanes MD - Last Filed: 08/23/24 08:23> CT scan - chest: Attestation: I have reviewed the pertinent imaging results. <Bonny Llanes MD - Last Filed: 08/23/24 08:23> Radiologist's impression: Patient: Dianne Tolentino MR#: [id number] : 1960 Acct:[id number] Loc: ED Service Date: 08/20/[address]: Ordering Physician: Bonny Llanes M.D. Date of Service: 08/20/24 Procedure(s): CT angio chest PE protocol Accession Number(s): [id number] cc: Bonny Llanes M.D.; Provider,Not a Local~ For Patients: As a result of the Cures Act, medical imaging exams and procedure reports are released immediately into your electronic medical record. You may view this report before your referring provider. If you have questions, please contact your health care provider. INDICATION: Dyspnea. Chest pain. TECHNIQUE: Multiplanar CT pulmonary angiogram was performed after the administration of 95 mL of Isovue 370 intravenous contrast. COMPARISON: Same-day chest radiographs. FINDINGS: Lower neck: The visualized thyroid is unremarkable. Cardiovascular: Contrast opacification of the pulmonary arterial tree is adequate. Heart size is normal. Thoracic aorta and pulmonary artery are normal in caliber. Mild atherosclerotic calcifications of the aortic arch. No significant coronary arterial calcifications. No pulmonary embolus. Mediastinum and lymph nodes: Unremarkable. No pathologic mediastinal or hilar lymphadenopathy by size criteria. Lungs: No focal consolidation. Dependent atelectasis. Linear bandlike opacification of the lung bases bilaterally, likely subsegmental atelectasis and/or scarring. Airways: Patent and midline. Mild diffuse peribronchial wall thickening. Pleura: No pleural effusions or pneumothorax Chest wall: Unremarkable. Prominent axillary lymph nodes that do not meet size criteria for lymphadenopathy. Bones: No acute osseous abnormalities. Mild degenerative changes of the thoracic spine. Upper abdomen: No acute findings in the visualized upper abdomen. No reflux of contrast material into the IVC. IMPRESSION: 1. No pulmonary embolus. No CT evidence of right heart strain. 2. No acute intrathoracic pathology. Please note that all CT scans at this facility use dose modulation, iterative reconstruction, and/or weight-based dosing when appropriate to reduce radiation dose to as low as reasonably achievable. Dictated by Regan Sin MD @ 08/20/2024 10:56:28 PM <Bonny Llanes MD - Last Filed: 08/23/24 08:23> Critical Care Time Critical Care Time Critical Care Time: Yes Attestation: The patient required my highest level preparedness to intervene emergently and I personally spent this critical care time directly and personally managing the patient. This critical care time included: Obtaining a history; Examining the patient; Pulse oximetry; Ordering and reviewing of studies; Arranging urgent treatment with development of a management plan; Evaluation of patients response to treatment; Frequent reassessment discussions with other providers. This critical care time was performed to assess and manage the high probability of imminent life-threatening deterioration that could result in multiorgan failure. It was exclusive of separate billable procedures and treating other patients and teaching time. <Jose Gibbs MD - Last Filed: 08/21/24 02:22> Total Critical Care Time in Minutes: 60 (Total critical care time: Approximately minutes due to high probability clinically significant, life-threatening deterioration, the patient required my highest level preparedness to intervene emergently and I personally spent this critical care time directly and personally managing the patient. T) <Jose Gibbs MD - Last Filed: 08/21/24 02:22> Discharge Plan Discharge Clinical Impression: Chest pain, Elevated troponin <Bonny Llanes MD - Last Filed: 08/23/24 08:23> Patient Disposition: [facility] <Bonny Llanes MD - Last Filed: 08/23/24 08:23> Prescriptions: No Action lisinopril 20 mg tablet 20 mg PO DAILY metoprolol tartrate 25 mg tablet 50 mg PO DAILY omeprazole 20 mg capsule,delayed release(DR/EC) 20 mg PO DAILY <Bonny Llanes MD - Last Filed: 08/23/24 08:23> Stand Alone Forms: [employer] Info Instructions <Bonny Llanes MD - Last Filed: 08/23/24 08:23>
[2024-08-20 23:10] LABS: Troponin I* 1.35 ng/mL (0.01-0.04)
[2024-08-20] MEDS: HEPARIN 25,000 UNIT/500 ML BAG 20 UNIT IV (23:33)
[2024-08-20] MEDS: HEPARIN 5,000 UNIT/0.5 ML INJ 4000 UNIT IVP (23:33)
[2024-08-20 23:42] LABS: INR 0.91 (0.91-1.10)
[2024-08-20 23:43] LABS: Partial Thromboplastin Time* 26 Seconds (23-33)
[2024-08-21] VITALS (13 sets, daily range): BP systolic 129–146; BP diastolic 83–96; PULSE 59–81; RESP 12–26; O2SAT 93–97
[2024-08-21 01:10] LABS: Troponin, Point-of-Care* 9.78 ng/ml (0.01-0.04)
[2024-08-21 01:11] LABS: Troponin, Point-of-Care* 1.33 ng/ml (0.01-0.04)
[2024-08-21] MEDS: NITROGLYCERIN/DEXTROSE 25,000 MCG/250 ML BOTTLE 3 MCG IVPB (02:18)
== END 2024-08-21 02:48 | disposition short-term general hospital (02) ==
PROVIDERS: Emergency Medicine; Emergency Provider Family Medicine
DX: R07.9 Chest pain, unspecified (principal); R79.89 Other specified abnormal findings of blood chemistry
CPT/HCPCS: 36415; 71046; 71275; 80048; 80076; 83690; 84484; 85025; 85379; 85610; 85730; 86140; 93005; 94761; 99285; 99291; A9270; J1644; Q9967

== ENCOUNTER 2024-08-21 02:37 | Outpatient (CLI) | payer BC, SELFPAY | END 2024-08-21 02:38 | disposition home or self-care (01) | LOC: AMB 08-22 10:39 | PROVIDERS: Visit Provider Family Medicine | DX: I21.4 Non-ST elevation (NSTEMI) myocardial infarction (principal) | CPT/HCPCS: A0425; A0434 ==